=== PATIENT | female | born 1960 | race Caucasian/White ===

== ENCOUNTER 2017-08-13 13:15 | Emergency (ER) | payer OTHER ==
[2017-08-13 13:20] VITALS: BP 166/88
[2017-08-13] MEDS ORDERED: ACETAMINOPHEN 325 MG TABLET PO ONE (13:50)
[2017-08-13] MEDS ORDERED: LIDOCAINE 1% INJ-PF (10 MG/ML) 30 ML SDV INJ ONE (13:53)
[2017-08-13] MEDS ORDERED: LIDOCAINE 4%/TETRACAINE 0.5%/EPI 0.18% 5 ML TOPICAL SOLN TOP ONE (13:55)
[2017-08-13] MEDS ORDERED: HYDROCODONE/ACETAMINOPHEN 5-325 MG TABLET PO ONE (14:45)
[2017-08-13] MEDS ORDERED: CEPHALEXIN 500 MG CAPSULE PO ONE (14:45)
[2017-08-13] MEDS ORDERED: DIPH/PERTUSS(ACELL)/TETANUS VAC/PF 0.5 ML SYR (>=10YO) IM ONE (14:49)
--- NOTE | 2017-08-13 14:50 | ER Document Report ---
ED Hand/Wrist Injury - General Chief Complaint: Finger Injury Stated Complaint: FINGER INJURY Time Seen by Provider: 08/13/17 13:38 Mode of Arrival: Ambulatory Information source: Patient Notes: 56-year-old female presented to ED for open tuft fracture. She was sent from [place] since [place] to have her injury sutured and cleaned. Patient states she did not get a tetanus shot, antibiotics or pain medications at the [facility]. She states they they numbed the finger and then it was not numb and so they sent her up to come to the emergency room to have her finger sutured. Patient stated she impelled her finger with a sharp part of a machine she was working on , running it through the end of her finger. - HPI Injury to: Index finger Onset: This morning Where: Work Timing: Still present Quality of pain: Sharp, Throbbing Severity: Severe Pain Level: 5 Context: Laceration - Related Data Allergies/Adverse Reactions: No Known Allergies Allergy (Unverified 02/07/12 08:00) Past Medical History - General Information source: Patient - Social History Smoking Status: Current Every Day Smoker Cigarette use (# per day): Yes Chew tobacco use (# tins/day): No Smoking Education Provided: Yes Frequency of alcohol use: Occasional Drug Abuse: None Occupation: Machine Lives with: Family Family History: CAD, DM, Hyperlipidemia, Hypertension. denies: Arthritis, COPD , CVA, Malignancy, Thyroid Disfunction Patient has suicidal ideation: No Patient has homicidal ideation: No - Past Medical History Cardiac Medical History: Reports: None Pulmonary Medical History: Reports: None EENT Medical History: Reports: None Neurological Medical History: Reports: None Endocrine Medical History: Reports: None Renal/ Medical History: Reports: None Malignancy Medical History: Reports: None GI Medical History: Reports: None Musculoskeltal Medical History: Reports None Skin Medical History: Reports None Psychiatric Medical History: Reports: None Traumatic Medical History: Reports: None Infectious Medical History: Reports: None Surgical Hx: Negative Past Surgical History: Reports: None - Immunizations Immunizations up to date: Yes Hx Diphtheria, Pertussis, Tetanus Vaccination: Yes - 08/13/2017 Review of Systems - Review of Systems Constitutional: No symptoms reported EENT: No symptoms reported Cardiovascular: No symptoms reported Respiratory: No symptoms reported Gastrointestinal: No symptoms reported Genitourinary: No symptoms reported Female Genitourinary: No symptoms reported Musculoskeletal: Other - Left index finger tuft fracture Skin: Other - Open tuft fracture left index finger Hematologic/Lymphatic: No symptoms reported Neurological/Psychological: No symptoms reported -: Yes All other systems reviewed and negative Physical Exam - Vital signs Vitals: Temp Pulse BP Pulse Ox 97.7 F 77 166/88 H 98 08/13/17 13:19 08/13/17 13:19 08/13/17 13:19 08/13/17 13:19 Interpretation: Normal - General General appearance: Appears well, Alert - HEENT Head: Normocephalic, Atraumatic Eyes: Normal Pupils: PERRL - Respiratory Respiratory status: No respiratory distress Chest status: Nontender Breath sounds: Normal Chest palpation: Normal - Cardiovascular Rhythm: Regular Heart sounds: Normal auscultation Murmur: No - Abdominal Inspection: Normal Distension: No distension Bowel sounds: Normal Tenderness: Nontender Organomegaly: No organomegaly - Back Back: Normal, Nontender - Extremities General upper extremity: Normal temperature General lower extremity: Normal inspection, Nontender, Normal color, Normal ROM , Normal temperature, Normal weight bearing. No: Steven's sign Hand: Tender, Ecchymosis, Laceration, No evidence of human bite, No evidence of FB, Swelling. No: Abrasion, Deformity, Dislocation, Instability, Nail injury, Tendon deficit - Neurological Neuro grossly intact: Yes Cognition: Normal Orientation: AAOx4 Newberry Coma Scale Eye Opening: Spontaneous Newberry Coma Scale Verbal: Oriented Newberry Coma Scale Motor: Obeys Commands Kim Coma Scale Total: 15 Speech: Normal Motor strength normal: LUE, RUE, LLE, RLE Sensory: Normal - Psychological Associated symptoms: Normal affect, Normal mood - Skin Skin Temperature: Warm Skin Moisture: Dry Skin Color: Normal Course - Re-evaluation Re-evalutation: 08/13/17 15:00 56-year-old female presented to ED for open tuft fracture. She was sent from [place] since [place] to have her injury sutured and cleaned. Patient states that [facility] numbed her finger and then when the finger was not numb, they sent her to come to the emergency room to have her finger sutured. Patient states they did not give her any tenderness immunization, pain medicine, or antibiotics at the mid first. [facility] was called and they faxed over a x-ray report of the left index finger. It showed a tuft fracture and there is a opening. Patient stated she impelled her finger with a sharp part of a machine she was working on, running it through the end of her finger. She was treated with Tylenol and ice until we can get the faxed report from [employer]. L.E.T.was also applied to the finger to start the numbing process until I could suture the finger. After the report was received the finger was anesthetized with 1% lidocaine, cleaned well with surgical scrub, irrigated with 300 cc of normal saline, and sutured the laceration with 5-0 nylon sutures. After the finger was anesthetized patient tolerated the rest of the procedure well. Laceration was then dressed with bacitracin Telfa Kerlix and a protective finger splint. Patient was treated with Keflex and discharged home with a prescription for Keflex. Patient to follow-up with orthopedic for this open tuft fracture. - Vital Signs Vital signs: Temp Pulse Resp BP Pulse Ox 97.7 F 77 16 166/88 H 98 08/13/17 13:19 08/13/17 13:19 08/13/17 14:47 08/13/17 13:19 08/13/17 13:19 Procedures - Immobilization Left Finger 2nd digit Time completed: 15:00 Pre-Proc Neuro Vasc Exam: Normal Immobilizer type: Finger protection Performed by: PCT Post-Proc Neuro Vasc Exam: Normal Alignment checked and good: Yes - Laceration/Wound Repair Left Finger 2nd digit Time completed: 14:58 Wound length (cm): 1.5 Wound's Depth, Shape: Linear Laceration pre-procedure: Sterile PPE donned, Sterile drapes applied, Shur- Clens applied Anesthetic type: 1% Lidocaine Volume Anesthetic (mLs): 3 Wound explored: Contaminated Irrigated w/ Saline (mLs): 300 Wound Repaired With: Sutures Suture Size/Type: 5:0, Ethilon Number of Sutures: 3 Layer Closure?: No Post-procedure wound care: Sterile dressing applied, Splint applied Post-procedure NV exam normal: Yes Complications: No Discharge - Discharge Clinical Impression: tuft fracture left index finger open Condition: Stable Disposition: HOME, SELF-CARE Additional Instructions: Tuft Fracture of the Finger The tip of your finger is broken (beneath the finger nail). While painful , this type of fracture is not serious. You can expect the bone to heal within three to four weeks. Elevating and ice packing the finger will help greatly in reducing pain and swelling. You will probably need a protective splint, initially. When you can push firmly on the tip of your finger without any pain, you no longer need to use the splint. If the fingernail becomes black and painful, bleeding has occurred under the nail. This may need to be drained. Sometimes the nail must be removed. Occasionally, the tissue under the nail must be sewn back together. Call the doctor or return for examination if pain becomes severe, or if numbness or severe discoloration occurs. Hand Laceration A laceration on the hand can present special problems. It may be difficult to keep the wound dry. Motion of the fingers can disturb the healing edges. Your work may involve exposure to damaging chemicals or water. Keep the wound clean and dry. If you can't keep the cut dry, undisturbed, and free of chemical exposure, please discuss this with the doctor. If any water or chemical gets onto the dressing, remove it, blot the wound dry, then apply a fresh bandage. Dressings should be changed every day. If you feel the stitches pulling as you move the hand, a splint or other form of protection is needed. If any signs of infection occur (swelling, redness, increasing tenderness, red streaks, tender lumps in the armpit, or fever), see the doctor immediately. SOAP CLEANSING: Gently wash the wound daily using a mild soap (like Ivory, Phisoderm, Neutrogena). Use warm water, rubbing gently until all debris, ooze, and crusting have been washed from the wound. Allow to dry briefly (about 10 minutes) after cleaning. Repeat this cleansing at least three times a day for the first two days and then once or twice a day. ANTIBIOTIC OINTMENT PROTECTION: Your wounds are such that dressing them is not practical or optional. After cleansing, you should apply a thin coating of antibiotic ointment ( Bacitracin, not Neosporin) to the wounds at least three times daily. This lessens infection risk, and may decrease the amount of scarring. Use a q-tip or dull butter knife, not your finger, to apply this ointment. Any debris or ooze which builds up in the ointment should be gently rubbed off with a sterile gauze pad. Harder crusting may need to be gently scrubbed off with a clean wash cloth with soap and warm water, perhaps applying a warm, wet wash cloth to the wound for ten minutes first. Development of redness, severe itching, or blistering may mean allergy to the ointment. See the doctor. TETANUS IMMUNIZATION GIVEN: You have been given an immunization against tetanus. Please record this in your records. In general, a booster is needed only once every 10 years. The tetanus shot protects against tetanus or "lockjaw," which is a complication of certain wound infections (the tetanus shot cannot protect against the actual infection). The immunization site may become warm and red due to local reaction. If this occurs, apply warm compresses and take aspirin or ibuprofen to reduce inflammation and discomfort. Return for evaluation if the reaction becomes severe. PROPHYLACTIC ANTIBIOTIC: The antibiotics which have been prescribed are designed to decrease the risk of infection. Only certain types of wounds benefit from this -- the typical cut, scrape, or burn DOES NOT require antibiotics. Of course, infection can still occur despite the use of prophylactic antibiotics. Your wound will heal with less chance of an infectious complication if you take the medication as directed. The most important dose is the FIRST dose, so don't delay filling the prescription! ORAL NARCOTIC MEDICATION: You have been given a prescription for pain control. This medication is a narcotic. It's best taken with food, as nausea can result if taken on an empty stomach. Don't operate machinery or drive within six hours of taking this medication. Do not combine this medicine with alcohol, or with any medication which can cause sedation (such as cold tablets or sleeping pills) unless you get permission from the physician. Narcotics tend to cause constipation. If possible, drink plenty of fluids and eat a diet high in fiber and fruits. FOLLOW-UP CARE: Please follow-up with primary doctor or be seen in the emergency room in __ 2___ days for an infection check and dressing change. Please call orthopedics today or tomorrow to schedule a follow-up appointment for your open tuft fracture. Your sutures should be removed in ___8_ days. To facilitate a timely removal of your sutures, you may return to the Emergency Department at [facility]. You do not need to call for an appointment, but the best time to come in for suture removal is early in the morning. If you have been referred to another physician for follow-up care, call that physicians office for an appointment as you were instructed. If you experience a significant change in your laceration, or if you are concerned there may be an infection (swelling, redness, drainage, increasing tenderness, red streaks, tender lumps in the armpit or groin above the laceration, or fever) , return to the Emergency Department immediately re-evaluation. Prescriptions: Hydrocodone/Acetaminophen [Mcdonough 5-325 mg Tablet] 1 tab PO Q6HP PRN #7 tablet PRN Reason: Cephalexin Monohydrate [Keflex 500 mg Capsule] 500 mg PO Q6H 5 Days capsule Forms: Elevated Blood Pressure, Smoking Cessation Education, Return to Work Referrals: VERONICA CHAVEZ DO [ACTIVE STAFF] - Follow up as needed
== END 2017-08-13 14:58 | disposition home or self-care (01) ==
LOC: ER 13:15
PROC: 0HQGXZZ Repair Left Hand Skin, External Approach (ICD-10-PCS; principal; 2017-08-13)
DX: S62.631B Displaced fracture of distal phalanx of left index finger, initial encounter for open fracture (principal); W31.9XXA Contact with unspecified machinery, initial encounter; Y99.0 Civilian activity done for income or pay; Z23 Encounter for immunization; F17.210 Nicotine dependence, cigarettes, uncomplicated
CPT/HCPCS: 99283; 90471; 90715; 12001; J3490 ×2

== ENCOUNTER → 2018-01-27 | Outpatient (CLI) | payer SELFPAY ==
--- NOTE | 2018-01-27 16:59 | XCELERA REPORT ---
[address] [place] [facility] [address] Lower Extremity Venous Evaluation Procedure: Color flow and duplex imaging of the veins of the right lower extremity as well as the left Common Femoral vein. Right Sided Venous Evaluation Abnormal vessel filling, lucent, lack of, compression a, no Colour flow Fro Femoral to infrageniculate vessels the Greater Saphenous vein.. Left Sided Venous Evaluation The left common femoral vein is fully compressible. Spontaneous and phasic flow is present in the left common femoral vein. Interpretation Summary Extensive, acute DVT in the right lower extremity veins as detailed. Also superficial phlebitis. Name: TIA BENAVIDES Age: 57 yrs Gender: Female : 1960 Patient Status: Preadmit Patient Location: Study Date: 01/27/2018 04:02 PM Reason For Study: RLE PAIN Ordering Physician: ALEXIA LORENZ Performed By: Jenifer Galeana : ALEXIA LORENZ > Corby Tubbs
== END ==
LOC: SP 17:13
PROVIDERS: ATTEND Internal Medicine Hematology & Oncology
DX: M79.604 Pain in right leg (principal); M79.89 Other specified soft tissue disorders
CPT/HCPCS: 93971

== ENCOUNTER 2018-08-13 21:53 | Emergency (ER) | payer SELFPAY ==
--- NOTE | 2018-08-13 22:16 | ER Document Report ---
ED Medical Screen (RME) - General Stated Complaint: PSYCH Time Seen by Provider: 08/13/18 21:53 Primary Care Provider: ALEXIA LORENZ MD [Primary Care Provider] - Follow up as needed Mode of Arrival: Medic Information source: Patient, Emergency Med Personnel Notes: Patient is a 57-year-old female who presents the emergency department with complaints of depression and EtOH intoxication. Patient reports that she has a lot of stressors at home. States that she drank beer and liquor today. Denies any specific suicide plan. States that she "just needs to get help" and "just feel like giving up". Patient reports history of depression but states she has not taken any medications at this time. TRAVEL OUTSIDE OF THE [place] IN LAST 30 DAYS: No - Related Data Allergies/Adverse Reactions: No Known Allergies Allergy (Unverified 02/07/12 08:00) Past Medical History Renal/ Medical History: Denies: Hx Peritoneal Dialysis - Immunizations Immunizations up to date: Yes Hx Diphtheria, Pertussis, Tetanus Vaccination: Yes - 08/13/2017 Doctor's Discharge - Discharge Referrals: ALEXIA LORENZ MD [Primary Care Provider] - Follow up as needed
[2018-08-14 01:02] LABS: ABSOLUTE EOSINOPHILS # (AUTO) 0.1 10^3/uL (0.0-0.6); ABSOLUTE LYMPHOCYTES (AUTO) 1.6 10^3/uL (0.5-4.7); ABSOLUTE MONOCYTES (AUTO) 0.4 10^3/uL (0.1-1.4); ABSOLUTE NEUT (AUTO) 2.1 10^3/uL (1.7-8.2); EOSINOPHILS % (AUTO) 2.2 % (0-6); MEAN CORPUSCULAR HEMOGLOBIN 33.9 pg (27.0-33.4); MEAN CORPUSCULAR VOLUME 100 fl (80-97); MONOCYTES % (AUTO) 8.9 % (3-13); PLATELET COUNT 255 10^3/uL (150-450); RED BLOOD COUNT 5.61 10^6/uL (3.72-5.28); RED CELL DISTRIBUTION WIDTH 14.5 % (11.5-14.0); SEGMENTED NEUTROPHILS % (AUTO) 49.9 % (42-78); TOTAL CELLS COUNTED % (AUTO) 100 %; WHITE BLOOD COUNT 4.2 10^3/uL (4.0-10.5)
[2018-08-14 01:03] LABS: HEMATOCRIT 55.9 % (36.0-47.0)
[2018-08-14 01:21] LABS: ALANINE AMINOTRANSFERASE 41 U/L (9-52); ALBUMIN 4.8 g/dL (3.5-5.0); ALCOHOL 197 mg/dL (NONE DETECTED); ALKALINE PHOSPHATASE 137 U/L (38-126); ANION GAP 14 (5-19); ASPARTATE AMINO TRANSFERASE 44 U/L (14-36); BILIRUBIN,DIRECT 0.3 mg/dL (0.0-0.4); BILIRUBIN,TOTAL 0.5 mg/dL (0.2-1.3); BLOOD UREA NITROGEN 10 mg/dL (7-20); CALCIUM 10.1 mg/dL (8.4-10.2); CARBON DIOXIDE 24 mmol/L (22-30); CHLORIDE 108 mmol/L (98-107); GLUCOSE 88 mg/dL (75-110); POTASSIUM 4.7 mmol/L (3.6-5.0); SODIUM 145.7 mmol/L (137-145); TOTAL PROTEIN 8.4 g/dL (6.3-8.2)
[2018-08-14] MEDS ORDERED: DIAZEPAM 5 MG TABLET PO ONE (01:22)
[2018-08-14 01:24] LABS: ACETAMINOPHEN < 10 ug/mL (10-30); SALICYLATE < 1.0 mg/dL (2.0-20.0)
--- NOTE | 2018-08-14 01:27 | ER Document Report ---
Addendum entered and electronically signed by BACILIO STOKES DO 08/14/18 11:20: Discharge - Discharge Clinical Impression: Anxiety, Alcohol abuse Depression Qualifiers: Depression Type: unspecified Qualified Code(s): F32.9 - Major depressive disorder, single episode, unspecified Condition: Stable Disposition: HOME, SELF-CARE Additional Instructions: You have been evaluated both medical and behavioral health teams and been deemed appropriate for discharge. You have provided prescriptions for Effexor 37.5 mg daily and BuSpar 10 mg twice daily; please take as directed. You have been provided a local resource list of area providers including mobile crisis contact information and socioeconomic assistance. You are highly encouraged to follow-u p with outpatient substance abuse and mental health treatment. ACUTE ALCOHOL INTOXICATION and ALCOHOL ABUSE: Your evaluation revealed very high levels of alcohol. You can from dr inking a large amount of alcohol rapidly! Further, there's the risk of falls, traffic accidents, and fights. A high portion (about 50 percent) of the serious injuries seen in hospital emergency rooms are caused by alcohol. Alcohol overdosage is usually due to an underlying emotional or psychiatric problem. You may benefit from counselling. If "binge" drinking is an ongoing problem for you, or if you drink ANY AMOUNT of alcohol EVERY day, you most likely have a tendency to alcoholism. You should avoid alcohol totally. We can refer you for treatment. Persons with alcohol problems are often also prone to other addictions -- you should discuss any use of medications or drugs with the doctor. You should be watched at home for the next several hours by someone who has not been drinking. Get extra fluids for the next 24 hours. Call the doctor if there is repeated vomiting, increasing headache, decreasing level of alertness, or any other worsening. CHRONIC ALCOHOLISM and ALCOHOL ABUSE: Your evaluation reveals evidence of chronic alcoholism, an addiction to alcohol. The tendency to alcoholism may be inherited. Chronic use of alcohol weakens muscles, causes fatty deposits in the liver, damages the stomach, makes you more prone to infections, and can cause defects in unborn children. In the long run, brain atrophy and cirrhosis of the liver result. You are also at greater risk for certain types of cancer, such as cancer of the mouth, throat, stomach, and liver. Counselling services are available to help you. In-hospital treatment programs often help. Support groups such as Alcoholics Anonymous can be very useful in beating this addiction. Your physician can make a referral for you. As alcoholics often are prone to other addictions, you should discuss your use of any other medications with the doctor. ALCOHOL WITHDRAWAL: Your symptoms are caused by alcohol withdrawal. After a period of frequent drinking, the brain and body are changed by the alcohol. When you quit or reduce your drinking, the nervous system becomes unstable. Withdrawal symptoms can start a few hours after your last drink, but sometimes don't begin until a couple of days later. Symptoms can include shakiness, sweating, insomnia, nausea, vomiting, fearfulness, hallucinations, and seizures. In addition to the acute effects of alcohol withdrawal, we often have to deal with the medical effects of alcoholism. These problems often include dehydration, stomach irritation, intestinal bleeding, low blood sugar, liver disease, and pancreas inflammation. Treatment for alcohol withdrawal includes mild sedatives, vitamins, and fluids. You need to be with someone who can help if symptoms become severe. Many patients can withdraw at home. Admission to the hospital or a detox facility may be necessary if withdrawal symptoms are severe and uncontrollable. Abstaining from alcohol is the only effective long-term treatment. If you start drinking again, you will not be able to control yourself after the first drink. Treatment programs are available. In addition, many alcoholics benefit from Alcoholics Anonymous or other support groups available through your counselor or yazdanism documentation writer. KASSANDRA-SHIRLEY and MARCOS-DARRYL are support groups for friends and family members of an alcoholic. Go to the emergency room if you develop persistent vomiting, severe abdominal pain, fever, shortness of breath, hallucinations, uncontrollable tremors, or seizures. DEPRESSION: Your evaluation reveals that you have mental depression. While symptoms may be vague, they often include disturbance of sleep, fatigue, loss of appetite, and general loss of interest in life. While depression may be a side effect of drugs, or a reaction to a major change in your life, many cases have no known cause. If depression is acute, and related to a major loss in your life, you can expect it to clear completely with time. If you have been depressed a long time, are prone to repeated bouts of depression or low mood, or have been thinking of suicide, get help. Depression can be treated with anti-depressant medication and counselling. Long-term depression will often take a few weeks to clear, even with appropriate medication. Follow-up care is important. FOLLOW-UP CARE: If you have been referred to a physician for follow-up care, call the physicians office for an appointment as you were instructed or within the next two days.~ If you experience worsening or a significant change in your symptoms, notify the physician immediately or return to the Emergency Department at any time for re-evaluation. Prescriptions: Buspirone HCl [Buspar 10 mg Tablet] 10 mg PO BID 7 Days #14 tablet Venlafaxine HCl ER [Effexor Xr 37.5 mg Cap.sr] 37.5 mg PO DAILY 7 Days #7 cap.[id number].24h Referrals: [facility] [Outside] - Follow up in 3-5 days [facility] [Outside] - Follow up as needed ALEXIA LORENZ MD [Primary Care Provider] - Follow up as needed Addendum entered and electronically signed by GALINA BETTENCOURT LCSWA 08/14/18 11:15: Discharge - Discharge Clinical Impression: Anxiety, Alcohol abuse Depression Qualifiers: Depression Type: unspecified Qualified Code(s): F32.9 - Major depressive disorder, single episode, unspecified Condition: Stable Disposition: HOME, SELF-CARE Additional Instructions: You have been evaluated both medical and behavioral health teams and been deemed appropriate for discharge. You have provided prescriptions for Effexor 37.5 mg daily and BuSpar 10 mg twice daily; please take as directed. You have been provided a local resource list of area providers including mobile crisis contact information and socioeconomic assistance. You are highly encouraged to follow- up with outpatient substance abuse and mental health treatment. ACUTE ALCOHOL INTOXICATION and ALCOHOL ABUSE: Your evaluation revealed very high levels of alcohol. You can from drinking a large amount of alcohol rapidly! Further, there's the risk of falls, traffic accidents, and fights. A high portion (about 50 percent) of the serious injuries seen in hospital emergency rooms are caused by alcohol. Alcohol overdosage is usually due to an underlying emotional or psychiatric problem. You may benefit from counselling. If "binge" drinking is an ongoing problem for you, or if you drink ANY AMOUNT of alcohol EVERY day, you most likely have a tendency to alcoholism. You should avoid alcohol totally. We can refer you for treatment. Persons with alcohol problems are often also prone to other addictions -- you should discuss any use of medications or drugs with the doctor. You should be watched at home for the next several hours by someone who has not been drinking. Get extra fluids for the next 24 hours. Call the doctor if there is repeated vomiting, increasing headache, decreasing level of alertness, or any other worsening. CHRONIC ALCOHOLISM and ALCOHOL ABUSE: Your evaluation reveals evidence of chronic alcoholism, an addiction to alcohol. The tendency to alcoholism may be inherited. Chronic use of alcohol weakens muscles, causes fatty deposits in the liver, damages the stomach, makes you more prone to infections, and can cause defects in unborn children. In the long run, brain atrophy and cirrhosis of the liver result. You are also at greater risk for certain types of cancer, such as cancer of the mouth, throat, stomach, and liver. Counselling services are available to help you. In-hospital treatment programs often help. Support groups such as Alcoholics Anonymous can be very useful in beating this addiction. Your physician can make a referral for you. As alcoholics often are prone to other addictions, you should discuss your use of any other medications with the doctor. ALCOHOL WITHDRAWAL: Your symptoms are caused by alcohol withdrawal. After a period of frequent drinking, the brain and body are changed by the alcohol. When you quit or reduce your drinking, the nervous system becomes unstable. Withdrawal symptoms can start a few hours after your last drink, but sometimes don't begin until a couple of days later. Symptoms can include shakiness, sweating, insomnia, nausea, vomiting, fearfulness, hallucinations, and seizures. In addition to the acute effects of alcohol withdrawal, we often have to deal with the medical effects of alcoholism. These problems often include dehydration, stomach irritation, intestinal bleeding, low blood sugar, liver disease, and pancreas inflammation. Treatment for alcohol withdrawal includes mild sedatives, vitamins, and fluids. You need to be with someone who can help if symptoms become severe. Many patients can withdraw at home. Admission to the hospital or a detox facility may be necessary if withdrawal symptoms are severe and uncontrollable. Abstaining from alcohol is the only effective long-term treatment. If you start drinking again, you will not be able to control yourself after the first drink. Treatment programs are available. In addition, many alcoholics benefit from Alcoholics Anonymous or other support groups available through your [facility] or yazdanism documentation writer. AL-ANON and ALA-TEEN are support groups for friends and family members of an alcoholic. Go to the emergency room if you develop persistent vomiting, severe abdominal pain, fever, shortness of breath, hallucinations, uncontrollable tremors, or seizures. DEPRESSION: Your evaluation reveals that you have mental depression. While symptoms may be vague, they often include disturbance of sleep, fatigue, loss of appetite, and general loss of interest in life. While depression may be a side effect of drugs, or a reaction to a major change in your life, many cases have no known cause. If depression is acute, and related to a major loss in your life, you can expect it to clear completely with time. If you have been depressed a long time, are prone to repeated bouts of depression or low mood, or have been thinking of suicide, get help. Depression can be treated with anti-depressant medication and counselling. Long-term depression will often take a few weeks to clear, even with appropriate medication. Follow-up care is important. FOLLOW-UP CARE: If you have been referred to a physician for follow-up care, call the physicians office for an appointment as you were instructed or within the next two days.~ If you experience worsening or a significant change in your symptoms, notify the physician immediately or return to the Emergency Department at any time for re-evaluation. Referrals: ALEXIA LORENZ MD [Primary Care Provider] - Follow up as needed [facility] [Outside] - Follow up as needed [facility] [Outside] - Follow up in 3-5 days Original Note: ED General - General Chief Complaint: Depression Stated Complaint: PSYCH Time Seen by Provider: 08/13/18 21:53 Primary Care Provider: ALEXIA LORENZ MD [Primary Care Provider] - Follow up as needed Mode of Arrival: Medic Notes: Patient is a 57-year-old female past medical history of COPD, depression, presents complaining of "not being able to do this anymore". Patient reports significant social stressors at home including her son getting out on wright, patient paid $5000 to have him released from group home and he has since disappeared, is not responding to any phone calls or text messages. Patient also reports significant marital discord as well as discord with her neighbors. Patient states that she lost a good job recently, is now working at [employer] for minimum wage. The patient states that she is "tired of all of this" states that she feels hopeless. The patient denies any specific suicidal plan, means or intention to harm herself but simply states that she just wishes this could all and. She denies any acute medical concerns. She is not currently on any psychiatric medications although states that she once was in the [facility] emergency department and felt better after getting Ativan although they did not send her home with any additional medications. She does admit to resuming drinking and smoking within the past several weeks due to the stressors although states that she had been clean from both of these things for 5 months previous to that. She has not seen her general physician regarding today's concerns. TRAVEL OUTSIDE OF THE [place] IN LAST 30 DAYS: No - Related Data Allergies/Adverse Reactions: No Known Allergies Allergy (Unverified 02/07/12 08:00) Past Medical History - General Information source: Patient, Emergency Med Personnel - Social History Smoking Status: Current Every Day Smoker Frequency of alcohol use: Occasional Drug Abuse: None Lives with: Spouse/Significant other Family History: CAD, DM, Hyperlipidemia, Hypertension. denies: Arthritis, COPD, CVA, Malignancy, Thyroid Disfunction Patient has suicidal ideation: Yes - denies Patient has homicidal ideation: No Renal/ Medical History: Denies: Hx Peritoneal Dialysis - Immunizations Immunizations up to date: Yes Hx Diphtheria, Pertussis, Tetanus Vaccination: Yes - 08/13/2017 Review of Systems - Review of Systems Notes: Constitutional: Negative for fever. HENT: Negative for sore throat. Eyes: Negative for visual changes. Cardiovascular: Negative for chest pain. Respiratory: Negative for shortness of breath. Gastrointestinal: Negative for abdominal pain, vomiting or diarrhea. Genitourinary: Negative for dysuria. Musculoskeletal: Negative for back pain. Skin: Negative for rash. Neurological: Negative for headaches, weakness or numbness. 10 point ROS negative except as marked above and in HPI. Physical Exam - Vital signs Vitals: Temp Pulse Resp BP 97.9 F 94 17 123/75 08/13/18 22:47 08/13/18 22:47 08/13/18 22:47 08/13/18 22:47 Interpretation: Normal Notes: PHYSICAL EXAMINATION: GENERAL: Somewhat thin but in no acute distress HEAD: Atraumatic, normocephalic. EYES: Pupils equal round and reactive to light, extraocular movements intact, sclera anicteric, conjunctiva are normal. ENT: nares patent, oropharynx clear without exudates. Moist mucous membranes. NECK: Normal range of motion, supple without lymphadenopathy LUNGS: Breath sounds clear to auscultation bilaterally and equal. No wheezes rales or rhonchi. HEART: Regular rate and rhythm without murmurs ABDOMEN: Soft, nontender, normoactive bowel sounds. No guarding, no rebound. No masses appreciated. EXTREMITIES: Normal range of motion, no pitting or edema. No cyanosis. NEUROLOGICAL: No focal neurological deficits. Moves all extremities spontaneously and on command. PSYCH: Anxious, tearful SKIN: Warm, Dry, normal turgor, no rashes or lesions noted. Course - Re-evaluation Re-evalutation: 08/14/18 01:25 Patient presents with concerns of increasing anxiety, depression, feelings of hopelessness without overt suicidality. Does not meet immediate involuntary commitment criteria. She denies acute medical concerns. She has agreed to remain in the emergency department on a voluntary basis. Patient appears to be having somewhat of a panic attack at time of my evaluation, hyperventilating, tearful. Will give 5 mg of oral diazepam. Medical screening exam otherwise unremarkable. Medical screening labs are pending. She is otherwise cleared for evaluation in the morning. - Vital Signs Vital signs: Temp Pulse Resp BP Pulse Ox 97.9 F 94 17 123/75 08/13/18 22:47 08/13/18 22:47 08/13/18 22:47 08/13/18 22:47 - Laboratory Result Diagrams: 08/14/18 00:40 08/14/18 00:40 Laboratory results interpreted by me: 08/14/18 00:40 RBC 5.61 H Hgb 19.0 H Hct 55.9 H MCV 100 H MCH 33.9 H RDW 14.5 H Discharge - Discharge Clinical Impression: Anxiety Depression Qualifiers: Depression Type: unspecified Qualified Code(s): F32.9 - Major depressive disorder, single episode, unspecified Condition: Stable Referrals: ALEXIA LORENZ MD [Primary Care Provider] - Follow up as needed
[2018-08-14 02:44] LABS: APPEARANCE,URINE SLIGHTLY-CLOUDY; BILIRUBIN,URINE NEGATIVE (NEGATIVE); COLOR,URINE YELLOW; GLUCOSE, URINE NEGATIVE (NEGATIVE); KETONES,URINE NEGATIVE (NEGATIVE); LEUKOCYTE ESTERASE,URINE NEGATIVE (NEGATIVE); NITRITE,URINE NEGATIVE (NEGATIVE); PROTEIN,URINE 30 mg/dL (NEGATIVE); URINE SPECIFIC GRAVITY 1.017; UROBILINOGEN,URINE NEGATIVE mg/dL (<2.0)
[2018-08-14 03:02] LABS: URINE AMPHETAMINES SCREEN NEGATIVE; URINE BARBITURATES SCREEN NEGATIVE; URINE BENZODIAZEPINES SCREEN NEGATIVE; URINE COCAINE SCREEN NEGATIVE; URINE MARIJUANA (THC) SCREEN UNCONFIRMED POSITIVE; URINE METHADONE SCREEN NEGATIVE; URINE PHENCYCLIDINE SCREEN NEGATIVE
[2018-08-14 11:05] VITALS: BP 130/68
--- NOTE | 2018-08-14 12:33 | EKG REPORT ---
SEVERITY:- BORDERLINE ECG - SINUS RHYTHM BORDERLINE PROLONGED QT INTERVAL : Confirmed by: Tammy Garcia 14-Aug-2018 12:32:47
--- NOTE | 2018-08-14 16:54 | ER Document Report ---
Doctor's Note Notes: 08/14/18 16:53 As the rounding physician this AM, I assessed the patient's labs, vitals, and records. No concerning findings this morning. Patient denies any acute complaints. Patient is cleared for disposition by behavioral health team. PHYSICAL EXAMINATION: GENERAL: Well-appearing, well-nourished and in no acute distress. HEAD: Atraumatic, normocephalic. EYES: Pupils equal round extraocular movements intact, conjunctiva are normal. ENT: Nares patent NECK: Normal range of motion LUNGS: No respiratory distress Musculoskeletal: Normal range of motion NEUROLOGICAL: Normal speech, normal gait. PSYCH: Normal mood, normal affect. SKIN: Warm, Dry, normal turgor, no rashes or lesions noted. Home-going medication recommendations include Effexor and BuSpar.
== END 2018-08-14 11:48 | disposition home or self-care (01) ==
LOC: ER 21:53
DX: F41.9 Anxiety disorder, unspecified (principal); F32.9 Major depressive disorder, single episode, unspecified; F10.10 Alcohol abuse, uncomplicated; F17.200 Nicotine dependence, unspecified, uncomplicated; Z63.0 Problems in relationship with spouse or partner; Z62.820 Parent-biological child conflict
CPT/HCPCS: 36415; 80053; 80307; 81001; 85025; 93005; 93010; 99284

== ENCOUNTER 2018-10-16 00:29 | Emergency (ER) | payer SELFPAY | END 2018-10-16 01:30 | disposition left against medical advice (07) | LOC: ER 00:29 | DX: Z53.21 Procedure and treatment not carried out due to patient leaving prior to being seen by health care provider (principal) ==

== ENCOUNTER 2018-12-18 01:19 | Emergency (ER) | payer SELFPAY ==
[2018-12-18 01:29] VITALS: BP 108/63
== END 2018-12-18 03:55 | disposition left against medical advice (07) ==
LOC: ER 01:19
DX: Z53.21 Procedure and treatment not carried out due to patient leaving prior to being seen by health care provider (principal)

== ENCOUNTER 2019-02-14 01:19 | Emergency (ER) | payer SELFPAY ==
[2019-02-14 03:08] LABS: APPEARANCE,URINE CLEAR; BILIRUBIN,URINE NEGATIVE (NEGATIVE); COLOR,URINE STRAW; GLUCOSE, URINE NEGATIVE (NEGATIVE); KETONES,URINE NEGATIVE (NEGATIVE); LEUKOCYTE ESTERASE,URINE NEGATIVE (NEGATIVE); NITRITE,URINE NEGATIVE (NEGATIVE); PROTEIN,URINE NEGATIVE (NEGATIVE); URINE SPECIFIC GRAVITY 1.002; UROBILINOGEN,URINE NEGATIVE mg/dL (<2.0)
[2019-02-14 03:08] LABS: ABSOLUTE EOSINOPHILS # (AUTO) 0.1 10^3/uL (0.0-0.6); ABSOLUTE LYMPHOCYTES (AUTO) 1.3 10^3/uL (0.5-4.7); ABSOLUTE MONOCYTES (AUTO) 0.4 10^3/uL (0.1-1.4); ABSOLUTE NEUT (AUTO) 2.5 10^3/uL (1.7-8.2); BASOPHILS % (AUTO) 0.9 % (0-2); EOSINOPHILS % (AUTO) 3.4 % (0-6); HEMATOCRIT 49.6 % (36.0-47.0); HEMOGLOBIN 16.8 g/dL (12.0-15.5); MEAN CORPUSCULAR HEMOGLOBIN 33.8 pg (27.0-33.4); MEAN CORPUSCULAR HGB CONC 33.8 g/dL (32.0-36.0); MEAN CORPUSCULAR VOLUME 100 fl (80-97); MONOCYTES % (AUTO) 9.2 % (3-13); PLATELET COUNT 274 10^3/uL (150-450); RED BLOOD COUNT 4.97 10^6/uL (3.72-5.28); SEGMENTED NEUTROPHILS % (AUTO) 57.5 % (42-78); TOTAL CELLS COUNTED % (AUTO) 100 %; WHITE BLOOD COUNT 4.4 10^3/uL (4.0-10.5)
[2019-02-14 03:23] LABS: URINE AMPHETAMINES SCREEN NEGATIVE; URINE BARBITURATES SCREEN NEGATIVE; URINE BENZODIAZEPINES SCREEN NEGATIVE; URINE COCAINE SCREEN NEGATIVE; URINE MARIJUANA (THC) SCREEN NEGATIVE; URINE METHADONE SCREEN NEGATIVE; URINE PHENCYCLIDINE SCREEN NEGATIVE
[2019-02-14 03:24] LABS: ACETAMINOPHEN < 10 ug/mL (10-30); ALBUMIN 3.9 g/dL (3.5-5.0); ALCOHOL 231 mg/dL (NONE DETECTED); ALKALINE PHOSPHATASE 105 U/L (38-126); ANION GAP 11 (5-19); ASPARTATE AMINO TRANSFERASE 66 U/L (14-36); BILIRUBIN,DIRECT 0.1 mg/dL (0.0-0.4); BILIRUBIN,TOTAL 0.3 mg/dL (0.2-1.3); BLOOD UREA NITROGEN 8 mg/dL (7-20); CALCIUM 9.2 mg/dL (8.4-10.2); CARBON DIOXIDE 24 mmol/L (22-30); CHLORIDE 109 mmol/L (98-107); GLUCOSE 93 mg/dL (75-110); SALICYLATE < 1.0 mg/dL (2.0-20.0); TOTAL PROTEIN 6.6 g/dL (6.3-8.2)
[2019-02-14] MEDS ORDERED: NORMAL SALINE 1000 ML 1,000 ML IV ONE (03:35)
[2019-02-14] MEDS ORDERED: DIPHENHYDRAMINE HCL 50 MG CAPSULE PO ONE (04:15)
[2019-02-14] MEDS ORDERED: NICOTINE 21 MG/24 HR PATCH.TD24 TD ONE (04:29)
--- NOTE | 2019-02-14 04:49 | ER Document Report ---
ED Psych Disorder / Suicide - General TRAVEL OUTSIDE OF THE [place] IN LAST 30 DAYS: No <OCTAVIA COBIAN - Last Filed: 02/14/19 07:28> <GALINA BETTENCOURT - Last Filed: 02/14/19 11:05> <DEANGELODEDRA - Last Filed: 02/14/19 11:24> - General Chief Complaint: Suicidal Ideation Stated Complaint: SI/ETOH Time Seen by Provider: 02/14/19 02:49 Primary Care Provider: ALEXIA LORENZ MD [Primary Care Provider] - Follow up as needed Notes: Patient is a 58-year-old female presents to the emergency department for suicidal ideations. Patient openly admits to drinking alcohol this evening. She is conscious alert and oriented x4. States she has been fighting with her ex-. Patient voices, "I just want it all to end." Patient also voices that if she had a gun she would kill herself. Patient states she would like medication to help her sleep and she would also like a cigarette. Patient denies any homicidal ideations, she denies any visual or auditory hallucinations. (OCTAVIA COBIAN) - Related Data Allergies/Adverse Reactions: No Known Allergies Allergy (Unverified 02/07/12 08:00) Past Medical History - General Information source: Patient - Social History Smoking Status: Current Every Day Smoker Chew tobacco use (# tins/day): No Frequency of alcohol use: Heavy Family History: CAD, DM, Hyperlipidemia, Hypertension. denies: Arthritis, COPD, CVA, Malignancy, Thyroid Disfunction Patient has suicidal ideation: Yes Patient has homicidal ideation: Yes Renal/ Medical History: Denies: Hx Peritoneal Dialysis Psychiatric Medical History: Reports: Hx Depression - Immunizations Immunizations up to date: Yes Hx Diphtheria, Pertussis, Tetanus Vaccination: Yes - 08/13/2017 <OCTAVIA COBIAN - Last Filed: 02/14/19 07:28> Review of Systems - Review of Systems Constitutional: No symptoms reported EENT: No symptoms reported Cardiovascular: No symptoms reported Respiratory: No symptoms reported Gastrointestinal: No symptoms reported Genitourinary: No symptoms reported Female Genitourinary: No symptoms reported Musculoskeletal: No symptoms reported Skin: No symptoms reported Hematologic/Lymphatic: No symptoms reported Neurological/Psychological: See HPI <MANSOOR COBIANSHELLIEURI - Last Filed: 02/14/19 07:28> Physical Exam <MANSOOR COBIANSHELLIEURI - Last Filed: 02/14/19 07:28> - Vital signs Vitals: Temp Pulse Resp BP Pulse Ox 97.6 F 96 22 H 124/72 99 02/14/19 01:23 02/14/19 01:23 02/14/19 01:23 02/14/19 01:02/14/19 01:23 - Notes Notes: GENERAL: Alert, interacts well. No acute distress. Hoarse voice noted on exam, patient states this is her normal. HEAD: Normocephalic, atraumatic. EYES: Pupils equal, round, and reactive to light. Extraocular movements intact. ENT: Oral mucosa moist, tongue midline. NECK: Full range of motion. Supple. Trachea midline. LUNGS: Clear to auscultation bilaterally, no wheezes, rales, or rhonchi. No respiratory distress. HEART: Regular rate and rhythm. No murmur ABDOMEN: Soft, non-tender. Non-distended. Bowel sounds present in all 4 quadrants. EXTREMITIES: Moves all 4 extremities spontaneously. No edema, normal radial and dorsalis pedis pulses bilaterally. No cyanosis. BACK: no cervical, thoracic, lumbar midline tenderness. No saddle anesthesia, normal distal neurovascular exam. NEUROLOGICAL: Alert and oriented x3. Normal speech. cranial nerves II through XII grossly intact PSYCH: Normal affect, anxious. SKIN: Warm, dry, normal turgor. No rashes or lesions noted. (KEILYMANSOOR MARCELOMARYANA) Course - Laboratory Result Diagrams: 02/14/19 02:50 02/14/19 02:50 <KEILYDAVIANSHERRIEMASON - Last Filed: 02/14/19 07:28> - Laboratory Result Diagrams: 02/14/19 02:50 02/14/19 02:50 <GALINA BETTENCOURT - Last Filed: 02/14/19 11:05> - Laboratory Result Diagrams: 02/14/19 02:50 02/14/19 02:50 <DEDRA BRIGHT - Last Filed: 02/14/19 11:24> - Re-evaluation Re-evalutation: IVC petition has been filled out. Patient's initial blood alcohol was 231. Patient is conscious alert and oriented x4. Around 07:320 the patient will be clinically sober. She was given Benadryl in hopes to help her sleep. Upon reassessment patient is sleeping soundly, appears to be in no distress. 02/14/19 07:28 Patient continues to be sleeping, easily arousable to verbal stimuli. Voices no complaints. Patient is medically cleared for psych evaluation. (OCTAVIA COBIAN) - Vital Signs Vital signs: Temp Pulse Resp BP Pulse Ox 98.4 F 84 16 154/72 H 99 02/14/19 06:06 02/14/19 06:06 02/14/19 06:06 02/14/19 06:06 02/14/19 01:23 - Laboratory Laboratory results interpreted by me: 02/14/19 02/14/19 02:50 02:50 Hgb 16.8 H Hct 49.6 H MCV 100 H MCH 33.8 H Chloride 109 H AST 66 H Salicylates < 1.0 L Acetaminophen < 10 L Discharge <OCTAVIA COBIAN - Last Filed: 02/14/19 07:28> <GALINA BETTENCOURT - Last Filed: 02/14/19 11:05> <DEDRA BRIGHT - Last Filed: 02/14/19 11:24> - Discharge Clinical Impression: Suicidal ideations Alcohol intoxication Qualifiers: Complication of substance-induced condition: uncomplicated Qualified Code(s): F10.920 - Alcohol use, unspecified with intoxication, uncomplicated Condition: Stable Disposition: HOME, SELF-CARE Additional Instructions: You have been evaluated both medical and behavioral health teams and been deemed appropriate for discharge. The behavioral health team has secured a bed at the [facility]. You are highly encouraged to follow through this voluntary placement. You have also received a local resource list of area providers including mobile crisis contact information. ACUTE ALCOHOL INTOXICATION and ALCOHOL ABUSE: Your evaluation revealed very high levels of alcohol. You can from drinking a large amount of alcohol rapidly! Further, there's the risk of falls, traffic accidents, and fights. A high portion (about 50 percent) of the serious injuries seen in hospital emergency rooms are caused by alcohol. Alcohol overdosage is usually due to an underlying emotional or psychiatric problem. You may benefit from counselling. If "binge" drinking is an ongoing problem for you, or if you drink ANY AMOUNT of alcohol EVERY day, you most likely have a tendency to alcoholism. You should avoid alcohol totally. We can refer you for treatment. Persons with alcohol problems are often also prone to other addictions -- you should discuss any use of medications or drugs with the doctor. You should be watched at home for the next several hours by someone who has not been drinking. Get extra fluids for the next 24 hours. Call the doctor if there is repeated vomiting, increasing headache, decreasing level of alertness, or any other worsening. CHRONIC ALCOHOLISM and ALCOHOL ABUSE: Your evaluation reveals evidence of chronic alcoholism, an addiction to alcohol. The tendency to alcoholism may be inherited. Chronic use of alcohol weakens muscles, causes fatty deposits in the liver, damages the stomach, makes you more prone to infections, and can cause defects in unborn children. In the long run, brain atrophy and cirrhosis of the liver result. You are also at greater risk for certain types of cancer, such as cancer of the mouth, throat, stomach, and liver. Counselling services are available to help you. In-hospital treatment programs often help. Support groups such as Alcoholics Anonymous can be very useful in beating this addiction. Your physician can make a referral for you. As alcoholics often are prone to other addictions, you should discuss your use of any other medications with the doctor. ALCOHOL WITHDRAWAL: Your symptoms are caused by alcohol withdrawal. After a period of frequent drinking, the brain and body are changed by the alcohol. When you quit or reduce your drinking, the nervous system becomes unstable. Withdrawal symptoms can start a few hours after your last drink, but sometimes don't begin until a coupl e of days later. Symptoms can include shakiness, sweating, insomnia, nausea, vomiting, fearfulness, hallucinations, and seizures. In addition to the acute effects of alcohol withdrawal, we often have to deal with the medical effects of alcoholism. These problems often include dehydration, stomach irritation, intestinal bleeding, low blood sugar, liver disease, and pancreas inflammation. Treatment for alcohol withdrawal includes mild sedatives, vitamins, and fluids. You need to be with someone who can help if symptoms become severe. Many patients can withdraw at home. Admission to the hospital or a detox facility may be necessary if withdrawal symptoms are severe and uncontrollable. Abstaining from alcohol is the only effective long-term treatment. If you start drinking again, you will not be able to control yourself after the first drink. Treatment programs are available. In addition, many alcoholics benefit from Alcoholics Anonymous or other support groups available through your counselor or methodist sales representative supervisor. AL-ANOiLsandro and MARCOS-TEEN are support groups for friends and family members of an alcoholic. Go to the emergency room if you develop persistent vomiting, severe abdominal pain, fever, shortness of breath, hallucinations, uncontrollable tremors, or seizures. DEPRESSION: Your evaluation reveals that you have mental depression. While symptoms may be vague, they often include disturbance of sleep, fatigue, loss of appetite, and general loss of interest in life. While depression may be a side effect of drugs, or a reaction to a major change in your life, many cases have no known cause. If depression is acute, and related to a major loss in your life, you can expect it to clear completely with time. If you have been depressed a long time, are prone to repeated bouts of depression or low mood, or have been thinking of suicide, get help. Depression can be treated with anti-depressant medication and counselling. Long-term depression will often take a few weeks to clear, even with appropriate medication. Follow-up care is important. SUICIDAL IDEATION: Suicidal ideation is a common medical term for thoughts about suicide, whic h may be as detailed as a formulated plan, without the suicidal act itself. Although most people who undergo suicidal ideation do not commit suicide, some go on to make suicide attempts. The range of suicidal ideation varies greatly from fleeting to detailed planning, role playing, and unsuccessful attempts. While thoughts about suicide are common, most people do not carry out serious actions to commit suicide. Based upon your evaluation and discussion with you, we do not believe you are currently at risk to act upon your thoughts of suicide. You have agreed to return to the Emergency Department, at any time, if you feel inclined to act upon your suicidal thoughts. FOLLOW-UP CARE: If you have been referred to a physician for follow-up care, call the physicians office for an appointment as you were instructed or within the next two days. If you experience worsening or a significant change in your symptoms, notify the physician immediately or return to the Emergency Department at any time for re-evaluation. Referrals: ALEXIA LORENZ MD [Primary Care Provider] - Follow up as needed
--- NOTE | 2019-02-14 06:33 | EKG REPORT ---
SEVERITY:- OTHERWISE NORMAL ECG - SINUS RHYTHM BORDERLINE RIGHT AXIS DEVIATION : Confirmed by: Ritchie Stuart MD 14-Feb-2019 06:32:35
--- NOTE | 2019-02-14 09:37 | ER Document Report ---
Doctor's Note Notes: 02/14/19 09:36 I have evaluated this pt. this am and she has no c/o at this time. She feels all of her needs are being met and her PE is normal. She is awaiting disposition per mental health.
[2019-02-14 11:56] VITALS: BP 141/81
== END 2019-02-14 12:03 | disposition home or self-care (01) ==
LOC: ER 01:19
DX: R45.851 Suicidal ideations (principal); F10.920 Alcohol use, unspecified with intoxication, uncomplicated; F17.210 Nicotine dependence, cigarettes, uncomplicated
CPT/HCPCS: 93005; 99285; 96360; 36415; 80307 ×4; 85025; 80053; 81001; 93010; J7030

== ENCOUNTER 2019-02-18 23:11 | Emergency (ER) | payer SELFPAY ==
[2019-02-19 00:08] LABS: ABSOLUTE EOSINOPHILS # (AUTO) 0.1 10^3/uL (0.0-0.6); ABSOLUTE LYMPHOCYTES (AUTO) 1.3 10^3/uL (0.5-4.7); ABSOLUTE MONOCYTES (AUTO) 0.6 10^3/uL (0.1-1.4); ABSOLUTE NEUT (AUTO) 4.6 10^3/uL (1.7-8.2); BASOPHILS % (AUTO) 0.7 % (0-2); EOSINOPHILS % (AUTO) 1.5 % (0-6); HEMATOCRIT 48.7 % (36.0-47.0); HEMOGLOBIN 16.7 g/dL (12.0-15.5); LYMPHOCYTES % (AUTO) 20.1 % (13-45); MEAN CORPUSCULAR HEMOGLOBIN 34.4 pg (27.0-33.4); MEAN CORPUSCULAR HGB CONC 34.2 g/dL (32.0-36.0); MEAN CORPUSCULAR VOLUME 100 fl (80-97); MONOCYTES % (AUTO) 8.6 % (3-13); PLATELET COUNT 204 10^3/uL (150-450); RED BLOOD COUNT 4.85 10^6/uL (3.72-5.28); RED CELL DISTRIBUTION WIDTH 14.4 % (11.5-14.0); SEGMENTED NEUTROPHILS % (AUTO) 69.1 % (42-78); TOTAL CELLS COUNTED % (AUTO) 100 %; WHITE BLOOD COUNT 6.7 10^3/uL (4.0-10.5)
--- NOTE | 2019-02-19 00:11 | ER Document Report ---
ED Medical Screen (RME) - General Chief Complaint: Psych Problem Stated Complaint: SUICIDAL IDEATONS,VOLUNTARY IVC Time Seen by Provider: 02/19/19 00:01 Primary Care Provider: ALEXIA LORENZ MD [Primary Care Provider] - Follow up as needed Notes: Patient is a 58-year-old female presents to the emergency department for suicidal and homicidal ideations towards her ex-. Patient was just seen at this facility recently for same. Was also intoxicated at that time. Patient was discharged from this facility and sent to [facility]. Patient voices she has had over 7 beers this evening. States she would "like to end it all." Patient voices she was placed on hydroxyzine when she was discharged from this facility. States she took "more than I should have tonight." then admits to takinf 6 25 mg tabs Spoke with Crystal (case [id number]) at [facility] to watch for ACCESS CLINICIAN depression, EKG changes, need on agriculture engineer for 6 hours, hydrate for hypotension/tachycardia. Get 4 hours tylenol/asa level. After 6 hours if at baseline, clear for psych eval. If not at baseline (lethargic) monitor until at baseline. GENERAL: Alert, interacts well. Crying NEUROLOGICAL: Alert and oriented x3. Normal speech. PSYCH: Flat affect, depressed mood. I have greeted and performed a rapid initial assessment of this patient. A comprehensive ED assessment and evaluation of the patient, analysis of test results and completion of the medical decision making process will be conducted by additional ED providers. I have specifically instructed the patient or family members with the patient to immediately return to any nursing staff should anything change in the patient's condition or with their chief complaint. This medical record was dictated with voice recognizing software. There may be grammatical, syntax errors that are unintended. TRAVEL OUTSIDE OF THE [place] IN LAST 30 DAYS: No - Related Data Allergies/Adverse Reactions: No Known Allergies Allergy (Unverified 02/07/12 08:00) Past Medical History Renal/ Medical History: Denies: Hx Peritoneal Dialysis Psychiatric Medical History: Reports: Hx Depression - Immunizations Immunizations up to date: Yes Hx Diphtheria, Pertussis, Tetanus Vaccination: Yes - 08/13/2017 Physical Exam - Vital signs Vitals: Temp Pulse Resp BP Pulse Ox 98.0 F 75 16 107/70 97 02/18/19 23:37 02/18/19 23:37 02/18/19 23:37 02/18/19 23:37 02/18/19 23:37 Course - Vital Signs Vital signs: Temp Pulse Resp BP Pulse Ox 98.0 F 75 16 107/70 97 02/18/19 23:37 02/18/19 23:37 02/18/19 23:37 02/18/19 23:37 02/18/19 23:37 - Laboratory Result Diagrams: 02/18/19 23:35 02/18/19 23:35 Laboratory results interpreted by me: 02/18/19 23:35 Hgb 16.7 H Hct 48.7 H MCV 100 H MCH 34.4 H RDW 14.4 H Doctor's Discharge - Discharge Referrals: ALEXIA LORENZ MD [Primary Care Provider] - Follow up as needed
[2019-02-19 00:19] LABS: ALBUMIN 4.3 g/dL (3.5-5.0); ALCOHOL 73 mg/dL (NONE DETECTED); ALKALINE PHOSPHATASE 84 U/L (38-126); ANION GAP 11 (5-19); ASPARTATE AMINO TRANSFERASE 67 U/L (14-36); BILIRUBIN,DIRECT 0.2 mg/dL (0.0-0.4); BILIRUBIN,TOTAL 0.4 mg/dL (0.2-1.3); BLOOD UREA NITROGEN 10 mg/dL (7-20); CALCIUM 9.9 mg/dL (8.4-10.2); CARBON DIOXIDE 26 mmol/L (22-30); CHLORIDE 105 mmol/L (98-107); GLUCOSE 81 mg/dL (75-110); POTASSIUM 4.1 mmol/L (3.6-5.0); TOTAL PROTEIN 7.1 g/dL (6.3-8.2)
[2019-02-19 00:22] LABS: ACETAMINOPHEN < 10 ug/mL (10-30); SALICYLATE < 1.0 mg/dL (2.0-20.0)
[2019-02-19 00:27] LABS: APPEARANCE,URINE CLEAR; BILIRUBIN,URINE NEGATIVE (NEGATIVE); COLOR,URINE STRAW; GLUCOSE, URINE NEGATIVE (NEGATIVE); KETONES,URINE NEGATIVE (NEGATIVE); LEUKOCYTE ESTERASE,URINE NEGATIVE (NEGATIVE); NITRITE,URINE NEGATIVE (NEGATIVE); PROTEIN,URINE NEGATIVE (NEGATIVE); URINE SPECIFIC GRAVITY 1.004; UROBILINOGEN,URINE NEGATIVE mg/dL (<2.0)
[2019-02-19 00:41] LABS: URINE AMPHETAMINES SCREEN NEGATIVE; URINE BARBITURATES SCREEN NEGATIVE; URINE BENZODIAZEPINES SCREEN NEGATIVE; URINE COCAINE SCREEN NEGATIVE; URINE MARIJUANA (THC) SCREEN NEGATIVE; URINE METHADONE SCREEN NEGATIVE; URINE PHENCYCLIDINE SCREEN NEGATIVE
--- NOTE | 2019-02-19 01:40 | ER Document Report ---
ED Psych Disorder / Suicide - General Chief Complaint: Suicidal Ideation Stated Complaint: SUICIDAL IDEATONS,VOLUNTARY IVC Time Seen by Provider: 02/19/19 00:01 Primary Care Provider: ALEXIA LORENZ MD [ACTIVE STAFF] - Follow up as needed TRAVEL OUTSIDE OF THE [place] IN LAST 30 DAYS: No - HPI Notes: This is a 58-year-old female who presents today with a complaint of suicidal id eation. Patient has a history of alcohol abuse and states she is been drinking heavily today. Patient states she is having some marital issues and has had some homicidal thoughts towards her ex-. She denies any physical complaints at this time. Patient apparently took an overdose of her medication. She states she took only 3 more pills. She admits to suicidal thoughts at the time. She denies any cardiopulmonary symptoms. Describes her symptoms as moderate. - Related Data Allergies/Adverse Reactions: No Known Allergies Allergy (Unverified 02/07/12 08:00) Past Medical History - Social History Smoking Status: Current Every Day Smoker Frequency of alcohol use: Heavy Drug Abuse: Prescription drugs Family History: CAD, DM, Hyperlipidemia, Hypertension. denies: Arthritis, COPD, CVA, Malignancy, Thyroid Disfunction Patient has suicidal ideation: Yes Patient has homicidal ideation: Yes Renal/ Medical History: Denies: Hx Peritoneal Dialysis Psychiatric Medical History: Reports: Hx Depression - Immunizations Immunizations up to date: Yes Hx Diphtheria, Pertussis, Tetanus Vaccination: Yes - 08/13/2017 Review of Systems - Review of Systems Gastrointestinal: denies: Abdominal pain, Diarrhea, Nausea Neurological/Psychological: Depression, Anxiety, Homicidal ideation, Suicidal ideation. denies: Confusion, Dementia -: Yes All other systems reviewed and negative Physical Exam - Vital signs Vitals: Temp Pulse Resp BP Pulse Ox 98.0 F 75 16 107/70 97 02/18/19 23:37 02/18/19 23:37 02/18/19 23:37 02/18/19 23:37 02/18/19 23:37 - General General appearance: Appears well, Alert - HEENT Head: Normocephalic, Atraumatic Eyes: Normal Pupils: PERRL - Respiratory Respiratory status: No respiratory distress Chest status: Nontender Breath sounds: Normal Chest palpation: Normal - Cardiovascular Rhythm: Regular Heart sounds: Normal auscultation Murmur: No - Abdominal Inspection: Normal Distension: No distension Bowel sounds: Normal Tenderness: Nontender Organomegaly: No organomegaly - Neurological Neuro grossly intact: Yes Cognition: Normal Orientation: AAOx4 [place] Coma Scale Eye Opening: Spontaneous [place] Coma Scale Verbal: Oriented [place] Coma Scale Motor: Obeys Commands [place] Coma Scale Total: 15 Speech: Normal Motor strength normal: LUE, RUE, LLE, RLE Sensory: Normal - Psychological Associated symptoms: Normal affect, Normal mood - Skin Skin Temperature: Warm Skin Moisture: Dry Skin Color: Normal Course - Re-evaluation Re-evalutation: 02/19/19 01:40 We will get behavioral health assessment done for suicidal and homicidal ideation. 02/19/19 03:21 Patient is medically cleared for behavioral health assessment. - Vital Signs Vital signs: Temp Pulse Resp BP Pulse Ox 98.0 F 75 16 107/70 97 02/18/19 23:37 02/18/19 23:37 02/18/19 23:37 02/18/19 23:37 02/18/19 23:37 - Laboratory Result Diagrams: 02/18/19 23:35 02/18/19 23:35 Laboratory results interpreted by me: 02/18/19 02/18/19 23:35 23:35 Hgb 16.7 H Hct 48.7 H MCV 100 H MCH 34.4 H RDW 14.4 H AST 67 H Salicylates < 1.0 L Acetaminophen < 10 L Discharge - Discharge Clinical Impression: Suicidal ideations Condition: Stable Disposition: OTHER Referrals: ALEXIA LORENZ MD [ACTIVE STAFF] - Follow up as needed
--- NOTE | 2019-02-19 09:08 | EKG REPORT ---
SEVERITY:- ABNORMAL ECG - SINUS RHYTHM PROBABLE LEFT ATRIAL ABNORMALITY BORDERLINE PROLONGED QT INTERVAL : Confirmed by: Tammy Garcia 19-Feb-2019 09:08:00
--- NOTE | 2019-02-19 09:08 | EKG REPORT ---
SEVERITY:- NORMAL ECG - SINUS RHYTHM : Confirmed by: Tammy Garcia 19-Feb-2019 09:07:44
--- NOTE | 2019-02-19 09:51 | ER Document Report ---
Doctor's Note Notes: 02/19/19 09:50 I have evaluated this pt. this am and she has no c/o at this time. She feels all of her needs are being met and her physical exam is normal. She wants to go home. She is awaiting disposition per mental health.
--- NOTE | 2019-02-19 10:51 | PSYCHOLOGICAL NOTE ---
Psych Note - Psych Note Date seen by psych provider: 02/19/19 Time seen by psych provider: 08:15 Psych Note: Reason for Consult: Homicidal ideation/ ETOH This is a 58-year-old female who presents today with a complaint of suicidal ideation. Patient has a history of alcohol abuse and states she is been drinking heavily today. Patient states she is having some marital issues and has had some homicidal thoughts towards her ex-; Clinician notes this is chronic for the patient when under the influence. Patient is now no longer under the influence and denies any thoughts of wanting to harm herself or others. She discloses that she was in [facility] for detox until last Thursday night but has relapsed. She disclosed that her son is currently looking into getting her a place that is a 6-month program located in [place]. Patient is alert and orientated to person, place, time and circumstance. Mood is slightly anxious with tearful affect. Patient denies suicidal and homicidal ideation. Delusions are absent behaviors congruent with an intact reality based presentation i.e. organized and linear thought process. Eye contact was well- maintained. Conversational speech is within normal rate, tone and prosody. Intellectual abilities appear to be within the average range. Attention and concentration are currently good. Insight, judgment, impulse control are fair. 303.90 (F10.20) alcohol use disorder; moderate No medication recommendations at this time Impression\plan: Patient is cleared from acute psychiatric services. Patient requesting substance use assistance. Patient denies thoughts of wanting to harm herself or others. Patient states her son is working on getting her into a 6 month substance abuse program in [place]. Patient was just released from [facility] after detoxing 6 days ago. Patient received resource list of area providers for both mental health and substance abuse treatment in addition to mobile crisis contact information and detox facilities. Dr. Hernandez was consulted and the care management of this patient; attending physicians in agreement with recommendations and disposition.
[2019-02-19 11:37] VITALS: BP 121/66
== END 2019-02-19 11:35 | disposition home or self-care (01) ==
LOC: ER 23:11
DX: R45.851 Suicidal ideations (principal); R45.850 Homicidal ideations; F10.10 Alcohol abuse, uncomplicated; F32.9 Major depressive disorder, single episode, unspecified; F17.200 Nicotine dependence, unspecified, uncomplicated
CPT/HCPCS: 36415; 80053; 80307; 81001; 85025; 93005; 93010; 99285

== ENCOUNTER 2019-02-25 23:20 | Emergency (ER) | payer SELFPAY ==
[2019-02-26 00:39] LABS: ABSOLUTE EOSINOPHILS # (AUTO) 0.2 10^3/uL (0.0-0.6); ABSOLUTE MONOCYTES (AUTO) 0.5 10^3/uL (0.1-1.4); ABSOLUTE NEUT (AUTO) 1.7 10^3/uL (1.7-8.2); EOSINOPHILS % (AUTO) 4.1 % (0-6); HEMATOCRIT 45.7 % (36.0-47.0); HEMOGLOBIN 15.7 g/dL (12.0-15.5); LYMPHOCYTES % (AUTO) 45.7 % (13-45); MEAN CORPUSCULAR HEMOGLOBIN 34.1 pg (27.0-33.4); MEAN CORPUSCULAR HGB CONC 34.3 g/dL (32.0-36.0); MEAN CORPUSCULAR VOLUME 99 fl (80-97); MONOCYTES % (AUTO) 10.4 % (3-13); PLATELET COUNT 268 10^3/uL (150-450); RED CELL DISTRIBUTION WIDTH 13.9 % (11.5-14.0); SEGMENTED NEUTROPHILS % (AUTO) 38.8 % (42-78); TOTAL CELLS COUNTED % (AUTO) 100 %; WHITE BLOOD COUNT 4.4 10^3/uL (4.0-10.5)
[2019-02-26 00:41] LABS: APPEARANCE,URINE CLEAR; BILIRUBIN,URINE NEGATIVE (NEGATIVE); COLOR,URINE COLORLESS; GLUCOSE, URINE NEGATIVE (NEGATIVE); KETONES,URINE NEGATIVE (NEGATIVE); LEUKOCYTE ESTERASE,URINE NEGATIVE (NEGATIVE); NITRITE,URINE NEGATIVE (NEGATIVE); PROTEIN,URINE NEGATIVE (NEGATIVE); URINE SPECIFIC GRAVITY 1.002; UROBILINOGEN,URINE NEGATIVE mg/dL (<2.0)
--- NOTE | 2019-02-26 01:02 | ER Document Report ---
ED Psych Disorder / Suicide - General Chief Complaint: Suicidal Ideation no plan Stated Complaint: PSYCH Time Seen by Provider: 02/25/19 23:43 Primary Care Provider: AYDEE LASSITER PA-C [Primary Care Provider] - Follow up as needed TRAVEL OUTSIDE OF THE [place] IN LAST 30 DAYS: No - HPI Notes: This is a 58-year-old female who presents today with a complaint of suicidal ideations. Patient states that she is tired of living and she just wants to . She does not have any specific plan at this time. Patient admits to have been drinking heavily also. Patient states that she just wishes she was asleep and not wake up again. She has no physical complaints at this time. - Related Data Allergies/Adverse Reactions: Penicillins Allergy (Unknown, Verified 02/25/19 23:43) Past Medical History - Social History Smoking Status: Current Every Day Smoker Chew tobacco use (# tins/day): No Frequency of alcohol use: Heavy Drug Abuse: Marijuana Family History: CAD, DM, Hyperlipidemia, Hypertension. denies: Arthritis, COPD, CVA, Malignancy, Thyroid Disfunction Patient has suicidal ideation: Yes Patient has homicidal ideation: No Renal/ Medical History: Denies: Hx Peritoneal Dialysis Psychiatric Medical History: Reports: Hx Depression - Immunizations Immunizations up to date: Yes Hx Diphtheria, Pertussis, Tetanus Vaccination: Yes - 08/13/2017 Review of Systems - Review of Systems Constitutional: denies: Fever Cardiovascular: denies: Chest pain, Palpitations, Heart racing Gastrointestinal: denies: Abdominal pain, Diarrhea, Nausea Neurological/Psychological: Depression, Suicidal ideation. denies: Headaches, Speech impairment -: Yes All other systems reviewed and negative Physical Exam - Vital signs Vitals: Temp Resp BP Pulse Ox 97.7 F 18 127/77 H 96 02/25/19 23:48 02/25/19 23:48 02/25/19 23:48 02/25/19 23:48 - General General appearance: Appears well, Alert - Respiratory Respiratory status: No respiratory distress Chest status: Nontender Breath sounds: Normal Chest palpation: Normal - Cardiovascular Rhythm: Regular Heart sounds: Normal auscultation Murmur: No - Abdominal Inspection: Normal Distension: No distension Bowel sounds: Normal Tenderness: Nontender Organomegaly: No organomegaly - Neurological Neuro grossly intact: Yes Cognition: Normal Orientation: AAOx4 Kim Coma Scale Eye Opening: Spontaneous Kim Coma Scale Verbal: Oriented Houston Coma Scale Motor: Obeys Commands [place] Coma Scale Total: 15 Speech: Normal Motor strength normal: LUE, RUE, LLE, RLE Sensory: Normal - Psychological Associated symptoms: Anxious, Depressed - Tearful, admits to suicidal ideation., Irritable - Skin Skin Temperature: Warm Skin Moisture: Dry Skin Color: Normal Course - Re-evaluation Re-evalutation: 02/26/19 01:01 Clinical picture is consistent with alcohol abuse and suicidal ideation. I will get behavioral health assessment done. We will put her on a CIWA scale given history of alcohol abuse. 02/26/19 06:32 Patient is stable. Awaiting behavioral health assessment. - Vital Signs Vital signs: Temp Pulse Resp BP Pulse Ox 97.7 F 18 127/77 H 96 02/25/19 23:48 02/25/19 23:48 02/25/19 23:48 02/25/19 23:48 - Laboratory Result Diagrams: 02/26/19 00:05 02/26/19 00:05 Laboratory results interpreted by me: 02/26/19 02/26/19 00:05 00:05 Hgb 15.7 H MCV 99 H MCH 34.1 H Lymph % (Auto) 45.7 H Seg Neutrophils % 38.8 L Salicylates < 1.0 L Acetaminophen < 10 L Discharge - Discharge Clinical Impression: Suicidal ideation, Alcohol abuse Condition: Stable Disposition: OTHER Referrals: ADYEE LASSITER PA-C [Primary Care Provider] - Follow up as needed
[2019-02-26 01:08] LABS: URINE AMPHETAMINES SCREEN NEGATIVE; URINE BARBITURATES SCREEN NEGATIVE; URINE BENZODIAZEPINES SCREEN NEGATIVE; URINE COCAINE SCREEN NEGATIVE; URINE MARIJUANA (THC) SCREEN NEGATIVE; URINE METHADONE SCREEN NEGATIVE; URINE PHENCYCLIDINE SCREEN NEGATIVE
[2019-02-26 01:11] LABS: ALBUMIN 3.9 g/dL (3.5-5.0); ALKALINE PHOSPHATASE 85 U/L (38-126); ANION GAP 12 (5-19); ASPARTATE AMINO TRANSFERASE 35 U/L (14-36); BILIRUBIN,DIRECT 0.1 mg/dL (0.0-0.4); BILIRUBIN,TOTAL 0.2 mg/dL (0.2-1.3); BLOOD UREA NITROGEN 8 mg/dL (7-20); CALCIUM 9.3 mg/dL (8.4-10.2); CARBON DIOXIDE 24 mmol/L (22-30); CHLORIDE 103 mmol/L (98-107); GLUCOSE 81 mg/dL (75-110); POTASSIUM 4.5 mmol/L (3.6-5.0); TOTAL PROTEIN 6.8 g/dL (6.3-8.2)
[2019-02-26 01:12] LABS: ALCOHOL 257 mg/dL (NONE DETECTED)
[2019-02-26 01:13] LABS: ACETAMINOPHEN < 10 ug/mL (10-30); SALICYLATE < 1.0 mg/dL (2.0-20.0)
--- NOTE | 2019-02-26 11:45 | ER Document Report ---
ED Psych Disorder / Suicide - General Chief Complaint: Suicidal Ideation no plan Stated Complaint: PSYCH Time Seen by Provider: 02/25/19 23:43 Primary Care Provider: [facility] [Outside] - Follow up as needed [facility] [Outside] - 02/28/19 8:00 am ([facility] allows walk in Thursday- Thursday 8:00AM-4:30PM) AYDEE LASSITER PA-C [Primary Care Provider] - Follow up as needed Notes: 58-year-old female presented overnight with complaint of suicidal ideations. Patient stated that she is tired of living and she just wants to . She does not have any specific plan at this time. Patient admitted to have been drinking heavily also. Patient states that she just wished she was asleep and not wake up again. She has no physical complaints at this time. Patient now sober and feeling much better, no SI/HI, no auditory or visual hallucinations, feels depressed. TRAVEL OUTSIDE OF THE [place] IN LAST 30 DAYS: No - Related Data Allergies/Adverse Reactions: Penicillins Allergy (Unknown, Verified 02/25/19 23:43) Past Medical History - Social History Smoking Status: Current Every Day Smoker Chew tobacco use (# tins/day): No Frequency of alcohol use: Heavy Drug Abuse: Marijuana Family History: CAD, DM, Hyperlipidemia, Hypertension. denies: Arthritis, COPD, CVA, Malignancy, Thyroid Disfunction Patient has suicidal ideation: Yes Patient has homicidal ideation: No Renal/ Medical History: Denies: Hx Peritoneal Dialysis Psychiatric Medical History: Reports: Hx Depression - Immunizations Immunizations up to date: Yes Hx Diphtheria, Pertussis, Tetanus Vaccination: Yes - 08/13/2017 Review of Systems - Review of Systems Constitutional: No symptoms reported EENT: No symptoms reported Cardiovascular: No symptoms reported Respiratory: No symptoms reported Gastrointestinal: No symptoms reported Genitourinary: No symptoms reported Female Genitourinary: No symptoms reported Musculoskeletal: No symptoms reported Skin: No symptoms reported Hematologic/Lymphatic: No symptoms reported Neurological/Psychological: See HPI Physical Exam - Vital signs Vitals: Temp Resp BP Pulse Ox 97.7 F 18 127/77 H 96 02/25/19 23:48 02/25/19 23:48 02/25/19 23:48 02/25/19 23:48 - Notes Notes: PHYSICAL EXAMINATION: Reviewed vital signs and charting by RN GENERAL: Alert, interacts well. No acute distress. HEAD: Normocephalic, atraumatic. EYES: Pupils equal and round. Extraocular movements intact. ENT: Oral mucosa moist, tongue midline. NECK: Full range of motion. Trachea midline. LUNGS: Clear to auscultation bilaterally, no wheezes, rales, or rhonchi. No respiratory distress. HEART: Regular rate and rhythm. No murmur ABDOMEN: soft, non-tender. No distention. Bowel sounds present EXTREMITIES: Moves all 4 extremities spontaneously. No edema, No cyanosis. PSYCH: Normal affect, normal mood. SKIN: Warm, dry, normal turgor. No rashes or lesions noted. Course - Re-evaluation Re-evalutation: 02/26/19 11:44 Patient initially set up with a bed at [facility]. Spoke with the mental health team and patient had Gerald called her wishing to leave. Patient is sober now and she states that when she drinks heavily she gets these depressed feelings and want feelings of wanting to hurt herself. Patient told that there will be a bed available at 12:00 or 1:00 this afternoon. Patient states that she wishes to go home. As the rounding provider this AM, I assessed the patient's labs, vitals, and records. No concerning findings this morning. Patient denies any acute complaints. Patient is cleared for disposition by psychiatry. It appears the patient is medically stable for transfer or discharge and mental health wishes to discharge patient with close follow-up services in place. - Vital Signs Vital signs: Temp Pulse Resp BP Pulse Ox 97.7 F 18 127/77 H 96 02/25/19 23:48 02/25/19 23:48 02/25/19 23:48 02/25/19 23:48 - Laboratory Result Diagrams: 02/26/19 00:05 02/26/19 00:05 Laboratory results interpreted by me: 02/26/19 02/26/19 00:05 00:05 Hgb 15.7 H MCV 99 H MCH 34.1 H Lymph % (Auto) 45.7 H Seg Neutrophils % 38.8 L Salicylates < 1.0 L Acetaminophen < 10 L Discharge - Discharge Clinical Impression: Suicidal ideation, Alcohol abuse, Alcohol intoxication Condition: Stable Disposition: HOME, SELF-CARE Additional Instructions: You have been evaluated by both medical and behavioral health providers while in the emergency department. You have been cleared from both medical and psychiatric services. Alcohol is a depressant, is mind altering, inhibits cognition and impairs insight/judgment/impulse control. If you are depressed it will likely increase it. Alcohol is detrimental physically/medically (heart, liver, brain and other organs). You are recommended to go to [facility] or at the very least follow up with outpatient services for ongoing support/care/treatment. CHRONIC ALCOHOLISM and ALCOHOL ABUSE: Your evaluation reveals evidence of chronic alcoholism, an addiction to alcohol. The tendency to alcoholism may be inherited. Chronic use of alcohol weakens muscles, causes fatty deposits in the liver, damages the stomach, makes you more prone to infections, and can cause defects in unborn children. In the long run, brain atrophy and cirrhosis of the liver result. You are also at greater risk for certain types of cancer, such as cancer of the mouth, throat, stomach, and liver. Counselling services are available to help you. In-hospital treatment programs often help. Support groups such as Alcoholics Anonymous can be very useful in beating this addiction. Your physician can make a referral for you. As alcoholics often are prone to other addictions, you should discuss your use of any other medications with the doctor. ALCOHOL WITHDRAWAL: (concerns for if you choose to abstain) Your symptoms are caused by alcohol withdrawal. After a period of frequent drinking, the brain and body are changed by the alcohol. When you quit or reduce your drinking, the nervous system becomes unstable. Withdrawal symptoms can start a few hours after your last drink, but sometimes don't begin until a couple of days later. Symptoms can include shakiness, sweating, insomnia, n ausea, vomiting, fearfulness, hallucinations, and seizures. In addition to the acute effects of alcohol withdrawal, we often have to deal with the medical effects of alcoholism. These problems often include dehydration, stomach irritation, intestinal bleeding, low blood sugar, liver disease, and pancreas inflammation. Treatment for alcohol withdrawal includes mild sedatives, vitamins, and fluids. You need to be with someone who can help if symptoms become severe. Many patients can withdraw at home. Admission to the hospital or a detox facility may be necessary if withdrawal symptoms are severe and uncontrollable. Abstaining from alcohol is the only effective long-term treatment. If you start drinking again, you will not be able to control yourself after the first drink. Treatment programs are available. In addition, many alcoholics benefit from Alcoholics Anonymous or other support groups available through your counselor or temple signs sales representative. AL-ANON and ALA-TEEN are support groups for friends and family members of an alcoholic. Go to the emergency room if you develop persistent vomiting, severe abdominal pain, fever, shortness of breath, hallucinations, uncontrollable tremors, or seizures. DEPRESSION: Your evaluation reveals that you have mental depression. While symptoms may be vague, they often include disturbance of sleep, fatigue, loss of appetite, and general loss of interest in life. While depression may be a side effect of drugs, or a reaction to a major change in your life, many cases have no known cause. If depression is acute, and related to a major loss in your life, you can expect it to clear completely with time. If you have been depressed a long time, are prone to repeated bouts of depression or low mood, or have been thinking of suicide, get help. Depression can be treated with anti-depressant medication and counselling. Long-term depression will often take a few weeks to clear, even with appropriate medication. Follow-up care is important. SUICIDAL IDEATION: Suicidal ideation is a common medical term for thoughts about suicide, which may be as detailed as a formulated plan, without the suicidal act itself. Although most people who undergo suicidal ideation do not commit suicide, some go on to make suicide attempts. The range of suicidal ideation varies greatly from fleeting to detailed planning, role playing, and unsuccessful attempts. While thoughts about suicide are common, most people do not carry out serious actions to commit suicide. Based upon your evaluation and discussion with you, we do not believe you are currently at risk to act upon your thoughts of suicide. You have agreed to return to the Emergency Department, at any time, if you feel inclined to act upon your suicidal thoughts. FOLLOW-UP CARE: You at first wanted linkage to [facility] for voluntary dual diagnosis substance abuse and mental health treatment which was initiated. You then changed your mind and declined linkage/referral. You were encouraged to follow through but still declined. You should follow up with outpatient dual diagnosis mental health and substance abuse treatment at [facility] (walk in Thursday-Thursday 8:00AM-4:30PM) and should do so as a walk in Thursday (02/28/19) morning. You have been given outpatient resources which includes information for [facility], [facility] and [facility]. If you experience worsening or a significant change in your symptoms, notify the physician immediately, utilize mobile crisis or return to the Emergency Department at any time for re-evaluation. Referrals: [facility] [Outside] - Follow up as needed [facility] [Outside] - 02/28/19 8:00 am ([facility] allows walk in Thursday- Thursday 8:00AM-4:30PM) AYDEE LASSITER PA-C [Primary Care Provider] - Follow up as needed
[2019-02-26 12:49] VITALS: BP 128/72
--- NOTE | 2019-02-26 19:24 | EKG REPORT ---
SEVERITY:- BORDERLINE ECG - SINUS RHYTHM BORDERLINE R WAVE PROGRESSION, ANTERIOR LEADS BORDERLINE PROLONGED QT INTERVAL : Confirmed by: Lisa Boswell MD 26-Feb-2019 19:23:36
--- NOTE | 2019-02-27 22:04 | PSYCHOLOGICAL NOTE ---
Psych Note - Psych Note Date seen by psych provider: 02/26/19 Time seen by psych provider: 07:57 - Chart review at 0757. Evaluation from 13- 17. Coordination with [facility] at 1004. Psych Note: Presenting Problem: SI (tired of living, just wants to , no plan, just go to sleep and not wake up), Depression, depression worsened after drinking 11 beers, Alcohol Intoxication (Serum Alcohol Level was 257 upon arrival to the ED). She stated "I am worried about my mom, she is not doing good, she has an aneurism in her heart, she lives in [place] and I cannot make a trip to her." She was tearful when talking about her mother. She admitted she drinks regularly. She identified she called the [facility] last evening but they had no beds available so she then called EMS to come to the ED (she was seeking help on her won which shows good insight/judgment/impulse control). She acknowledged she had been to the [facility] previously and was discharged 02/16/19. She has been seen by [facility] 02/18/19 (would have been just after discharge from [facility]) for SI and alcohol use, at that time the crisis was marital issues, she admitted to relapse and son was trying to get her to a 6 months program in [place]. Patient was alert and oriented x5 with linear thinking, mood was euthymic with congruent affect except when she talked about her mother then it was depressed with tearful affect (appropriate), she had time to sober up, she denied current SI/HI, previous SI was passive (no plan, no action, no intent), she made fair eye contact, she was able to engage/process and carry on dialogue conversation which was within normal limits for rate/tone/prosody. Initially she wanted to go to the [facility] and gave verbal consent for linkage and referral. Contacted [facility] and spoke to Irish who stated female beds would be opening up around [phone] and to call back. Patient made aware. She wanted to call her . called in to check on her about the time she wanted to call him. She decided against [facility] and arranged for to provide transportation. Diagnosis: Ill Mother ad Stress surrounding that Alcohol Use Disorder, Severe Depressive Disorder Impression/Plan: Patient cleared from acute psychiatric services. Patient was alert and oriented x5 with linear thinking, mood was euthymic with congruent affect except when she talked about her mother then it was depressed with tearful affect (appropriate), she had time to sober up, she denied current SI/HI, previous SI was passive (no plan, no action, no intent), she made fair eye contact, she was able to engage/process and carry on dialogue conversation which was within normal limits for rate/tone/prosody. She at first wanted referral to [facility] then said she would just go home with . provided transportation. Encouraged her to follow through with going to [facility] but she declined. Provided patient with the [facility] resource sheet which highlighted [facility], listed the detox facilities and specifically highlighted [facility] and documented [facility] for outpatient follow up with recommendation to walk in Thursday (02/28/19) morning. She said she would go to [facility] 02/28/19. Psychoeducated her on how alcohol is a depressant. Consulted with Dr. Hernandez regarding the management and care of patient. ED Physician in agreement with recommendations.
== END 2019-02-26 12:40 | disposition home or self-care (01) ==
LOC: ER 23:20
DX: R45.851 Suicidal ideations (principal); F10.129 Alcohol abuse with intoxication, unspecified; F17.200 Nicotine dependence, unspecified, uncomplicated
CPT/HCPCS: 36415; 80053; 80307; 81001; 85025; 93005; 93010; 99285

== ENCOUNTER 2019-03-12 02:10 | Emergency (ER) | payer SELFPAY ==
[2019-03-12] MEDS ORDERED: LORAZEPAM 0.5 MG TABLET PO ONE (03:07)
--- NOTE | 2019-03-12 03:11 | ER Document Report ---
ED Psych Disorder / Suicide - General Chief Complaint: Depression Stated Complaint: ANXIETY Primary Care Provider: AYDEE LASSITER PA-C [Primary Care Provider] - Follow up as needed Notes: Patient has history of anxiety also history of depression she claims that due to family issues she has become so anxious she has been depressed to the point where she has "thought of killing herself" she does not have a plan. She denies homicidal ideation auditory visual hallucinations TRAVEL OUTSIDE OF THE [place] IN LAST 30 DAYS: No - Related Data Allergies/Adverse Reactions: Penicillins Allergy (Unknown, Verified 02/25/19 23:43) Past Medical History - Social History Smoking Status: Current Every Day Smoker Frequency of alcohol use: Heavy Drug Abuse: Marijuana Family History: CAD, DM, Hyperlipidemia, Hypertension. denies: Arthritis, COPD, CVA, Malignancy, Thyroid Disfunction Patient has suicidal ideation: Yes Patient has homicidal ideation: No Renal/ Medical History: Denies: Hx Peritoneal Dialysis Psychiatric Medical History: Reports: Hx Depression - Immunizations Immunizations up to date: Yes Hx Diphtheria, Pertussis, Tetanus Vaccination: Yes - 08/13/2017 Review of Systems - Review of Systems Constitutional: denies: No symptoms reported, See HPI, Chills, Diaphoresis, Fever, Malaise, Weakness, Other, Weight gain, Weight loss, Recent illness EENT: denies: No symptoms reported, See HPI, Eye pain, Eye discharge, Blurred vision, Tearing, Double vision, Ear pain, Ear discharge, Nose pain, Nose congestion, Nose discharge, Sinus pressure, Sinus discharge, Throat pain, Di fficulty swallowing, Throat swelling, Mouth pain, Mouth swelling, Dental problem, Vertigo, Other Respiratory: denies: No symptoms reported, See HPI, Cough, Hurts to breathe, H emoptysis, Short of breath, Sputum, Stridor, Wheezing, Other Gastrointestinal: denies: See HPI, Abdomen distended, Abdominal pain, Diarrhea, Nausea, Vomiting, Constipation, Blood streaked bowels, Poor appetite, Poor fluid intake, Blood in vomit, Black stools, Rectal bleeding, Last bowel movement, Fecal incontinence, Other Neurological/Psychological: Depression, Anxiety, Suicidal ideation. denies: No symptoms reported, See HPI, Confusion, Dementia, Hallucinations, Homicidal ideation, Sensory change, Weakness, Gait changes, Loss of power, Paralysis, Seizure, Lost consciousness, Headaches, Speech impairment, Numbness, Tingling, Tremor, Other -: Yes All other systems reviewed and negative Physical Exam - Vital signs Vitals: Temp Pulse Resp BP Pulse Ox 97.6 F 85 18 119/67 100 03/12/19 02:38 03/12/19 02:38 03/12/19 02:38 03/12/19 02:38 03/12/19 02:38 Notes: PHYSICAL EXAMINATION: GENERAL: Well-appearing, well-nourished and in no acute distress. HEAD: Atraumatic, normocephalic. EYES: Pupils equal round and reactive to light, extraocular movements intact, sclera anicteric, conjunctiva are normal. ENT: nares patent, oropharynx clear without exudates. Moist mucous membranes. NECK: Normal range of motion, supple without lymphadenopathy LUNGS: Breath sounds clear to auscultation bilaterally and equal. No wheezes rales or rhonchi. HEART: Regular rate and rhythm without murmurs ABDOMEN: Soft, nontender, normoactive bowel sounds. No guarding, no rebound. No masses appreciated. EXTREMITIES: Normal range of motion, no pitting or edema. No cyanosis. NEUROLOGICAL: No focal neurological deficits. Moves all extremities spontaneously and on command. PSYCH: Flat affect with anxious overtones. Suicidal ideations "I am thinking of killing myself" denies homicidal ideations auditory hallucinations. SKIN: Warm, Dry, normal turgor, no rashes or lesions noted. Course - Vital Signs Vital signs: Temp Pulse Resp BP Pulse Ox 97.6 F 85 18 119/67 100 03/12/19 02:38 03/12/19 02:38 03/12/19 02:38 03/12/19 02:38 03/12/19 02:38 - Laboratory Result Diagrams: 03/12/19 03:25 03/12/19 03:25 Laboratory results interpreted by me: 03/12/19 03/12/19 03:25 03:25 Hgb 16.1 H Hct 47.3 H MCV 99 H MCH 33.7 H RDW 14.1 H Sodium 145.7 H Chloride 109 H Discharge - Discharge Clinical Impression: Suicidal ideations, Anxiety, Intoxication Condition: Fair Disposition: PSYCH HOSP/UNIT Referrals: AYDEE LASSITER PA-C [Primary Care Provider] - Follow up as needed
[2019-03-12 03:47] LABS: APPEARANCE,URINE CLEAR; BILIRUBIN,URINE NEGATIVE (NEGATIVE); COLOR,URINE STRAW; GLUCOSE, URINE NEGATIVE (NEGATIVE); KETONES,URINE NEGATIVE (NEGATIVE); LEUKOCYTE ESTERASE,URINE NEGATIVE (NEGATIVE); NITRITE,URINE NEGATIVE (NEGATIVE); PROTEIN,URINE NEGATIVE (NEGATIVE); URINE SPECIFIC GRAVITY 1.003; UROBILINOGEN,URINE NEGATIVE mg/dL (<2.0)
[2019-03-12 03:49] LABS: ABSOLUTE EOSINOPHILS # (AUTO) 0.1 10^3/uL (0.0-0.6); ABSOLUTE LYMPHOCYTES (AUTO) 1.7 10^3/uL (0.5-4.7); ABSOLUTE MONOCYTES (AUTO) 0.3 10^3/uL (0.1-1.4); ABSOLUTE NEUT (AUTO) 2.8 10^3/uL (1.7-8.2); EOSINOPHILS % (AUTO) 2.4 % (0-6); HEMATOCRIT 47.3 % (36.0-47.0); HEMOGLOBIN 16.1 g/dL (12.0-15.5); LYMPHOCYTES % (AUTO) 34.3 % (13-45); MEAN CORPUSCULAR HEMOGLOBIN 33.7 pg (27.0-33.4); MEAN CORPUSCULAR HGB CONC 34.1 g/dL (32.0-36.0); MEAN CORPUSCULAR VOLUME 99 fl (80-97); MONOCYTES % (AUTO) 6.9 % (3-13); PLATELET COUNT 237 10^3/uL (150-450); RED BLOOD COUNT 4.79 10^6/uL (3.72-5.28); RED CELL DISTRIBUTION WIDTH 14.1 % (11.5-14.0); SEGMENTED NEUTROPHILS % (AUTO) 55.4 % (42-78); TOTAL CELLS COUNTED % (AUTO) 100 %
[2019-03-12 03:54] LABS: ALBUMIN 4.6 g/dL (3.5-5.0); ALCOHOL 245 mg/dL (NONE DETECTED); ALKALINE PHOSPHATASE 97 U/L (38-126); ANION GAP 12 (5-19); ASPARTATE AMINO TRANSFERASE 30 U/L (14-36); BILIRUBIN,DIRECT 0.1 mg/dL (0.0-0.4); BILIRUBIN,TOTAL 0.4 mg/dL (0.2-1.3); BLOOD UREA NITROGEN 8 mg/dL (7-20); CALCIUM 9.6 mg/dL (8.4-10.2); CARBON DIOXIDE 25 mmol/L (22-30); CHLORIDE 109 mmol/L (98-107); GLUCOSE 92 mg/dL (75-110); POTASSIUM 4.1 mmol/L (3.6-5.0); TOTAL PROTEIN 7.7 g/dL (6.3-8.2)
[2019-03-12 04:00] LABS: URINE AMPHETAMINES SCREEN NEGATIVE; URINE BARBITURATES SCREEN NEGATIVE; URINE BENZODIAZEPINES SCREEN NEGATIVE; URINE COCAINE SCREEN NEGATIVE; URINE MARIJUANA (THC) SCREEN UNCONFIRMED POSITIVE; URINE METHADONE SCREEN NEGATIVE; URINE PHENCYCLIDINE SCREEN NEGATIVE
[2019-03-12 13:47] VITALS: BP 118/78
--- NOTE | 2019-03-12 13:50 | ER Document Report ---
Doctor's Note Notes: 03/12/19 13:48 Patient is not intoxicated at this time and is completely alert and oriented x3. Patient currently denies suicidal or homicidal ideation. Patient states she does not have a plan to hurt herself. Patient states that she [facility] with [facility] and has a appointment with them on Thursday. Patient reports she has been to [facility] multiple times patient was given a resource sheet for detox services in the area by mental health. Patient has a steady gait and shows no signs of withdrawal at this time. Patient stable for discharge. Has been to product picker the patient emergency department.
== END 2019-03-12 13:46 | disposition home or self-care (01) ==
LOC: ER 02:10
DX: R45.851 Suicidal ideations (principal); F41.9 Anxiety disorder, unspecified; F10.129 Alcohol abuse with intoxication, unspecified; F17.200 Nicotine dependence, unspecified, uncomplicated
CPT/HCPCS: 36415; 80053; 80307; 81001; 84443; 85025; 99285

== ENCOUNTER 2019-03-22 23:58 | Emergency (ER) | payer SELFPAY ==
--- NOTE | 2019-03-23 00:10 | ER Document Report ---
ED General - General Stated Complaint: SUICIDAL IDEATIONS Time Seen by Provider: 03/23/19 00:09 Primary Care Provider: AYDEE LASSITER PA-C [Primary Care Provider] - Follow up as needed Notes: Patient is a 58-year-old female with history of alcohol use and abuse that presents to the emergency department for chief complaint of depression, suicidal ideation, and alcohol intoxication. Patient states that tonight she was drinking beer, and was around her , and his stepson, they are getting into a significant argument, and she states that she somehow got the middle of it and states that she can take it anymore, she is been feeling rather depressed recently, has been trying to get into a treatment center for her alcohol use, got to the point this evening where she feels that she can go on anymore, she feels helpless and hopeless and was thinking about suicide. She denies any specific plan at this time. She will not elaborate either on how she feels when it comes to her depressive state currently. She states she did take to Seroquel that were prescribed to her friend to try to help calm her down but it was not helping so she came to the emergency department. She denies any other drug use, only alcohol and she states she smokes cigarettes. She denies having any hallucinations or confusion. Past Medical History: Depression, alcohol abuse Past Surgical History: Denies any recent or pertinent surgical history Social History: Admits to smoking cigarettes, and regular alcohol use, admits to marijuana use Family History: Reviewed and noncontributory for presenting illness Allergies: Reviewed, see documented allergy list. REVIEW OF SYSTEMS: Other than noted above, the 12 point review of systems was reviewed with the patient and were negative, all pertinent findings are included in the HPI. PHYSICAL EXAMINATION: Vital signs reviewed, nursing noted reviewed. GENERAL: Patient appears older than stated age, tearful on exam, but no acute distress HEAD: Atraumatic, normocephalic. EYES: Eyes appear normal, extraocular movements intact, sclera anicteric, conjunctiva are normal. PERRLA ENT: nares patent, oropharynx clear without exudates. Moist mucous membranes. NECK: Normal range of motion, supple without lymphadenopathy LUNGS: Breath sounds clear to auscultation bilaterally and equal. No wheezes rales or rhonchi. HEART: Regular rate and rhythm without murmurs ABDOMEN: Soft, nontender, normoactive bowel sounds. No rebound, guarding, or rigidity. No masses appreciated. EXTREMITIES: Nontender, good range of motion, no pitting or edema. No tremor noted. NEUROLOGICAL: No focal neurological deficits. Moves all extremities spontaneously Motor and sensory grossly intact on exam. PSYCH: Patient is tearful, but also appears anxious, no active hallucinations noted, no delusions. Patient is voicing suicidal ideation at this time without plan. SKIN: Warm, Dry, normal turgor, no rashes or lesions noted on exposed skin TRAVEL OUTSIDE OF THE [place] IN LAST 30 DAYS: No - Related Data Allergies/Adverse Reactions: Penicillins Allergy (Unknown, Verified 02/25/19 23:43) Past Medical History - Social History Smoking Status: Current Every Day Smoker Family History: CAD, DM, Hyperlipidemia, Hypertension. denies: Arthritis, COPD, CVA, Malignancy, Thyroid Disfunction Renal/ Medical History: Denies: Hx Peritoneal Dialysis Psychiatric Medical History: Reports: Hx Depression - Immunizations Immunizations up to date: Yes Hx Diphtheria, Pertussis, Tetanus Vaccination: Yes - 08/13/2017 Physical Exam - Vital signs Vitals: Temp Pulse Resp BP Pulse Ox 97.7 F 92 18 130/73 H 97 03/23/19 00:22 03/23/19 00:22 03/23/19 00:22 03/23/19 00:22 03/23/19 00:22 Course - Re-evaluation Re-evalutation: Patient seen and examined, vital signs reviewed, patient was emotionally distraught on exam, she was tearful, and appeared anxious as well, she also appeared intoxicated. Blood work was sent, due to patient's suicidal ideations, and will evaluate. Her EKG was unremarkable. Patient blood work reviewed and demonstrated essentially unremarkable blood work, was positive for THC, and alcohol of 121. Patient was treated with Ativan for her anxiety, 2 mg p.o. This point I feel the patient is medically clear, to be seen by behavioral health in the morning. IVC paperwork was filled out due to the patient's active suicidal ideations, and patient understood and agreed with this plan of care. Laboratory 03/23/19 03/23/19 03/23/19 00:45 00:45 02:00 WBC 5.5 RBC 4.31 Hgb 15.0 Hct 43.1 MCV 100 H MCH 34.7 H MCHC 34.7 RDW 14.2 H Plt Count 204 Lymph % (Auto) 30.0 [place] % (Auto) 10.6 Eos % (Auto) 3.3 Baso % (Auto) 0.8 Absolute Neuts (auto) 3.1 Absolute Lymphs (auto) 1.7 Absolute Monos (auto) 0.6 Absolute Eos (auto) 0.2 Absolute Basos (auto) 0.0 Seg Neutrophils % 55.3 Sodium Potassium Chloride Carbon Dioxide Anion Gap BUN Creatinine Est GFR ( Amer) Est GFR (MDRD) Non-Af Glucose Calcium Total Bilirubin Direct Bilirubin Neonat Total Bilirubin Neonat Direct Bilirubin Neonat Indirect Bili AST ALT Alkaline Phosphatase Total Protein Albumin Urine Color COLORLESS Urine Appearance CLEAR Urine pH 6.0 Ur Specific [place] 1.002 Urine Protein NEGATIVE Urine Glucose (UA) NEGATIVE Urine Ketones NEGATIVE Urine Blood NEGATIVE Urine Nitrite NEGATIVE Urine Bilirubin NEGATIVE Urine Urobilinogen NEGATIVE Ur Leukocyte Esterase NEGATIVE Urine RBC (Auto) 0 Urine Ascorbic Acid NEGATIVE Salicylates Urine Opiates Screen NEGATIVE Urine Methadone Screen NEGATIVE Acetaminophen Ur Barbiturates Screen NEGATIVE Ur Phencyclidine Scrn NEGATIVE Ur Amphetamines Screen NEGATIVE U Benzodiazepines Scrn NEGATIVE Urine Cocaine Screen NEGATIVE U Marijuana (THC) Screen UNCONFIRMED POSITIVE Serum Alcohol 03/23/19 02:00 WBC RBC Hgb Hct MCV MCH MCHC RDW Plt Count Lymph % (Auto) [place] % (Auto) Eos % (Auto) Baso % (Auto) Absolute Neuts (auto) Absolute Lymphs (auto) Absolute Monos (auto) Absolute Eos (auto) Absolute Basos (auto) Seg Neutrophils % Sodium 137.9 Potassium 4.2 Chloride 105 Carbon Dioxide 21 L Anion Gap 12 BUN 8 Creatinine 0.62 Est GFR ( Amer) > 60 Est GFR (MDRD) Non-Af > 60 Glucose 95 Calcium 9.4 Total Bilirubin 0.4 Direct Bilirubin 0.1 Neonat Total Bilirubin Not Reportable Neonat Direct Bilirubin Not Reportable Neonat Indirect Bili Not Reportable AST 35 ALT 26 Alkaline Phosphatase 91 Total Protein 7.1 Albumin 4.2 Urine Color Urine Appearance Urine pH Ur Specific [place] Urine Protein Urine Glucose (UA) Urine Ketones Urine Blood Urine Nitrite Urine Bilirubin Urine Urobilinogen Ur Leukocyte Esterase Urine RBC (Auto) Urine Ascorbic Acid Salicylates < 1.0 L Urine Opiates Screen Urine Methadone Screen Acetaminophen < 10 L Ur Barbiturates Screen Ur Phencyclidine Scrn Ur Amphetamines Screen U Benzodiazepines Scrn Urine Cocaine Screen U Marijuana (THC) Screen Serum Alcohol 121 - Vital Signs Vital signs: Temp Pulse Resp BP Pulse Ox 97.7 F 92 18 130/73 H 97 03/23/19 00:22 03/23/19 00:22 03/23/19 00:22 03/23/19 00:22 03/23/19 00:22 - Laboratory Result Diagrams: 03/23/19 02:00 03/23/19 02:00 Laboratory results interpreted by me: 03/23/19 03/23/19 02:00 02:00 MCV 100 H MCH 34.7 H RDW 14.2 H Carbon Dioxide 21 L Salicylates < 1.0 L Acetaminophen < 10 L - EKG Interpretation by Me Additional EKG results interpreted by me: EKG demonstrates normal sinus rhythm with a ventricular rate of 88 bpm, normal axis, QTC 484 ms, no evidence of acute ischemia in this EKG, this is compared with a prior EKG from 02/26/2019, without significant change. Discharge - Discharge Clinical Impression: Suicidal ideations, Alcohol abuse Condition: Stable Disposition: PSYCH HOSP/UNIT Referrals: AYDEE LASSITER PA-C [Primary Care Provider] - Follow up as needed
[2019-03-23 00:55] LABS: APPEARANCE,URINE CLEAR; BILIRUBIN,URINE NEGATIVE (NEGATIVE); COLOR,URINE COLORLESS; GLUCOSE, URINE NEGATIVE (NEGATIVE); KETONES,URINE NEGATIVE (NEGATIVE); LEUKOCYTE ESTERASE,URINE NEGATIVE (NEGATIVE); NITRITE,URINE NEGATIVE (NEGATIVE); PROTEIN,URINE NEGATIVE (NEGATIVE); URINE SPECIFIC GRAVITY 1.002; UROBILINOGEN,URINE NEGATIVE mg/dL (<2.0)
[2019-03-23] MEDS ORDERED: LORAZEPAM 1 MG TABLET PO ONE (02:05)
[2019-03-23 02:16] LABS: ABSOLUTE EOSINOPHILS # (AUTO) 0.2 10^3/uL (0.0-0.6); ABSOLUTE LYMPHOCYTES (AUTO) 1.7 10^3/uL (0.5-4.7); ABSOLUTE MONOCYTES (AUTO) 0.6 10^3/uL (0.1-1.4); ABSOLUTE NEUT (AUTO) 3.1 10^3/uL (1.7-8.2); BASOPHILS % (AUTO) 0.8 % (0-2); EOSINOPHILS % (AUTO) 3.3 % (0-6); HEMATOCRIT 43.1 % (36.0-47.0); MEAN CORPUSCULAR HEMOGLOBIN 34.7 pg (27.0-33.4); MEAN CORPUSCULAR HGB CONC 34.7 g/dL (32.0-36.0); MEAN CORPUSCULAR VOLUME 100 fl (80-97); MONOCYTES % (AUTO) 10.6 % (3-13); PLATELET COUNT 204 10^3/uL (150-450); RED BLOOD COUNT 4.31 10^6/uL (3.72-5.28); RED CELL DISTRIBUTION WIDTH 14.2 % (11.5-14.0); SEGMENTED NEUTROPHILS % (AUTO) 55.3 % (42-78); TOTAL CELLS COUNTED % (AUTO) 100 %; WHITE BLOOD COUNT 5.5 10^3/uL (4.0-10.5)
[2019-03-23 02:18] LABS: URINE AMPHETAMINES SCREEN NEGATIVE; URINE BARBITURATES SCREEN NEGATIVE; URINE BENZODIAZEPINES SCREEN NEGATIVE; URINE COCAINE SCREEN NEGATIVE; URINE MARIJUANA (THC) SCREEN UNCONFIRMED POSITIVE; URINE METHADONE SCREEN NEGATIVE; URINE PHENCYCLIDINE SCREEN NEGATIVE
[2019-03-23 02:27] LABS: ALBUMIN 4.2 g/dL (3.5-5.0); ALCOHOL 121 mg/dL (NONE DETECTED); ALKALINE PHOSPHATASE 91 U/L (38-126); ANION GAP 12 (5-19); ASPARTATE AMINO TRANSFERASE 35 U/L (14-36); BILIRUBIN,DIRECT 0.1 mg/dL (0.0-0.4); BILIRUBIN,TOTAL 0.4 mg/dL (0.2-1.3); BLOOD UREA NITROGEN 8 mg/dL (7-20); CALCIUM 9.4 mg/dL (8.4-10.2); CARBON DIOXIDE 21 mmol/L (22-30); CHLORIDE 105 mmol/L (98-107); GLUCOSE 95 mg/dL (75-110); POTASSIUM 4.2 mmol/L (3.6-5.0); TOTAL PROTEIN 7.1 g/dL (6.3-8.2)
[2019-03-23 02:33] LABS: ACETAMINOPHEN < 10 ug/mL (10-30); SALICYLATE < 1.0 mg/dL (2.0-20.0)
[2019-03-23] MEDS ORDERED: DIPHENHYDRAMINE HCL 50 MG/ML VIAL IM ONE (03:49)
[2019-03-23] MEDS ORDERED: PROMETHAZINE HCL INJ 25 MG/1 ML VIAL IM ONE (03:49)
--- NOTE | 2019-03-23 07:41 | EKG REPORT ---
SEVERITY:- NORMAL ECG - SINUS RHYTHM : Confirmed by: Ritchie Stuart MD 23-Mar-2019 07:40:17
--- NOTE | 2019-03-23 11:08 | PSYCHOLOGICAL NOTE ---
Psych Note - Psych Note Date seen by psych provider: 03/23/19 Time seen by psych provider: 07:50 Psych Note: Reason for consult: SI and ETOH Patient presented to ED via EMS for endorsing suicidal ideation and ETOH intoxication. Patient states primary concern is my nerves. Patient frequently states, I just need something for my nerves to calm me down because my nerves are bad. Patient denies suicidal and homicidal ideation. Patient denies w anting to . Patient reported a little bit of suicidal ideation last night, however continued that I aint gonna do nothing. Patient reports family related stressors in the home. There is conflict between son and . Patient reports added stress because mom is not doing good. Per patient report, patient scheduled 3 appointments with [facility], but had to cancel due to transportation issues. Patient reports no one in the home has a bulk tank driver's license. Patient received treatment at [facility] for 3.5 days. Patient is requesting the meds [facility] gave me. Patient reports continued use of alcohol to cope with anxiety. Patient denies a need for inpatient treatment. Patient verbalized a belief that outpatient treatment would be beneficial, however expressed concerns with transportation. Patient is alert and oriented to person, place, time and circumstance. Mood is normal with congruent affect as evidenced by appropriate engagement with clinician. Patient denies suicidal and homicidal ideation. Delusions are absent and behavior is congruent with an intact reality based presentation (i.e. organized and linear thought processes). Patient denies auditory and visual hallucinations. There is no observed behavior that suggests patient is responding to internal stimuli. Eye contact is fair. Conversational speech is within normal limits. Intellectual ability appears to be within average range. Attention and concentration are poor. Insight, judgment, and impulse control are poor. DSM Diagnosis: Alcohol Use Disorder Anxiety Relational Problem Not Otherwise Specified Medication recommendations per [facility] contracted psychiatrist Dr. Sherif TORRES is as follows: Buspar 10MG, twice per day. Impression/Plan: Patient is cleared from acute psychiatric services. Patient does not meet IVC criteria per [place] GS 122C. Patient denies auditory and visual hallucinations. Patient denies current suicidal and homicidal ideations. Medication recommendations have been provided. It is recommended that patient not receive Ativan as it is contraindicated for treatment. Patient has a history of ED visits related to alcohol intoxication and SI, and patient is prescribed Ativan. Patient is not requesting treatment for increased alcohol use. Patient denies need for treatment. Patient only requests medication management seemingly through a benzodiazepine type medication. It is recommended patient that patient follow up with [facility] with medication management, and mental health services to address anxiety and alcohol use related concerns. Dr. Hernandez was consulted on the care and management of this patient; attending physician is in agreement with recommendations and disposition.
--- NOTE | 2019-03-23 12:36 | ER Document Report ---
Doctor's Note Notes: 03/23/19 12:31 Patient is an afebrile, well-hydrated, 58-year-old female with history of alcohol abuse and depression who presents for suicidal ideation and depressed mood. Patient states that she was drinking beer last night and her and stepson were in an argument that she got in the middle of. Patient states that it made her very upset causing her to feel helpless and hopeless and not wanting to 'go on anymore.' Her medicine at home, Seroquel, was not helping so she came here for evaluation. She does have suicidal ideation, but has never had a plan. She otherwise has been able to eat and drink without difficulty. She is urinating normally. No visual or auditory hallucinations. Patient has had an otherwise unremarkable work-up and has been cleared by our mental health team. They would like BuSpar 10 mg twice daily added and I will send her with a short course of hydroxyzine to help with anxiety. Patient otherwise is feeling better than she was last night. She has no other concerns or complaints. Vitals are acceptable without significant tachycardia, tachypnea, or hypoxia. PE is otherw ise unremarkable. Pt is able to make clear decisions for herself, ambulate without any instability, and is otherwise clinically sober at this time. Pt feels safe to go home. No further work up warranted. Pt has been provided with resources and recommended f/u. Denies any headache, fever, neck pain, URI, sore throat, chest pain, palpitations, syncope, cough, shortness of breath, wheeze, dyspnea, abdominal pain, nausea/vomiting/diarrhea, urinary retention, dysuria, hematuria, or rash. Low suspicion for any sepsis, endocarditis, acute intracranial pathology, meningitis, fracture, acute abdomen, acute withdrawal, or other systemic infection at this time. Patient is aware that this condition can change from initial presentation and needs to monitor symptoms closely for any acute changes. Conservative measures otherwise for symptoms. Recheck with your PCM in 3-5 days or as needed otherwise. Return to the ED with any worsening/concerning symptoms otherwise as reviewed discharge. Patient is in agreement. Brief PE: General: A&Ox4. Answers questions appropriately. Appears well overall. Heart: RRR Lungs: CTAB Psych: normal Discharge - Discharge Clinical Impression: Suicidal ideations, Alcohol abuse Condition: Stable Disposition: HOME, SELF-CARE Additional Instructions: You have been evaluated by both medical and behavioral teams and have been deemed appropriate for discharge. Medication recommendations have been provided. You have been provided with a community mental health resource list as well as a community resource list for substance abuse treatment. You are highly encouraged to follow up with one of the resources provided to you to address mental health and alcohol use concerns. You have been provided with the contact information for mobile crisis, as needed. DEPRESSION: Your evaluation reveals that you have mental depression. While symptoms may be vague, they often include disturbance of sleep, fatigue, loss of appetite, and general loss of interest in life. While depression may be a side effect of drugs, or a reaction to a major change in your life, many cases have no known cause. If depression is acute, and related to a major loss in your life, you can expect it to clear completely with time. If you have been depressed a long time, are prone to repeated bouts of depression or low mood, or have been thinking of suicide, get help. Depression can be treated with anti-depressant medication and counselling. Long-term depression will often take a few weeks to clear, even with appropriate medication. Follow-up care is important. SUICIDAL IDEATION: Suicidal ideation is a common medical term for thoughts about suicide, which may be as detailed as a formulated plan, without the suicidal act itself. Although most people who undergo suicidal ideation do not commit suicide, some go on to make suicide attempts. The range of suicidal ideation varies greatly from fleeting to detailed planning, role playing, and unsuccessful attempts. While thoughts about suicide are common, most people do not carry out serious actions to commit suicide. Based upon your evaluation and discussion with you, we do not believe you are currently at risk to act upon your thoughts of suicide. You have agreed to return to the Emergency Department, at any time, if you feel inclined to act upon your suicidal thoughts. ACUTE ALCOHOL INTOXICATION and ALCOHOL ABUSE: You can from drinking a large amount of alcohol rapidly! Further, there's the risk of falls, traffic accidents, and fights. A high portion (about 50 percent) of the serious injuries seen in hospital emergency rooms are caused by alcohol. Alcohol overdosage is usually due to an underlying emotional or psychiatric problem. You may benefit from counselling. If "binge" drinking is an ongoing problem for you, or if you drink ANY AMOUNT of alcohol EVERY day, you most likely have a tendency to alcoholism. You should avoid alcohol totally. We can refer you for treatment. Persons with alcohol problems are often also prone to other addictions -- you should discuss any use of medications or drugs with the doctor. You should be watched at home for the next several hours by someone who has not been drinking. Get extra fluids for the next 24 hours. Call the doctor if there is repeated vomiting, increasing headache, decreasing level of alertness, or any other worsening. CHRONIC ALCOHOLISM and ALCOHOL ABUSE: Your evaluation reveals evidence of chronic alcoholism, an addiction to alcohol. The tendency to alcoholism may be inherited. Chronic use of alcohol weakens muscles, causes fatty deposits in the liver, damages the stomach, makes you more prone to infections, and can cause defects in unborn children. In the long run, brain atrophy and cirrhosis of the liver result. You are also at greater risk for certain types of cancer, such as cancer of the mouth, throat, stomach, and liver. Counselling services are available to help you. In-hospital treatment programs often help. Support groups such as Alcoholics Anonymous can be very useful in beating this addiction. Your physician can make a referral for you. As alcoholics often are prone to other addictions, you should discuss your use of any other medications with the doctor. ALCOHOL WITHDRAWAL: Your symptoms are caused by alcohol withdrawal. After a period of frequent drinking, the brain and body are changed by the alcohol. When you quit or reduce your drinking, the nervous system becomes unstable. Withdrawal symptoms can start a few hours after your last drink, but sometimes don't begin until a couple of days later. Symptoms can include shakiness, sweating, insomnia, nausea, vomiting, fearfulness, hallucinations, and seizures. In addition to the acute effects of alcohol withdrawal, we often have to deal with the medical effects of alcoholism. These problems often include dehydration, stomach irritation, intestinal bleeding, low blood sugar, liver disease, and pancreas inflammation. Treatment for alcohol withdrawal includes mild sedatives, vitamins, and fluids. You need to be with someone who can help if symptoms become severe. Many patients can withdraw at home. Admission to the hospital or a detox facility may be necessary if withdrawal symptoms are severe and uncontrollable. Abstaining from alcohol is the only effective long-term treatment. If you start drinking again, you will not be able to control yourself after the first drink. Treatment programs are available. In addition, many alcoholics benefit from Alcoholics Anonymous or other support groups available through your counselor or anabaptist salon sales consultant. FOLLOW-UP CARE: If you have been referred to a physician for follow-up care, call the physicians office for an appointment as you were instructed or within the next two days. If you experience worsening or a significant change in your symptoms, notify the physician immediately or return to the Emergency Department at any time for re-evaluation. Maintain adequate fluid and food intake Healthy diet tylenol/motrin if needed Monitor for any worsening symptoms Avoid drug/alcohol use Stop smoking Make sure you are staying hydrated enough to urinate and have normal BM's Recheck with your PCM in 3-5 days or as needed Schedule appointment with counseling or go to the [facility] facility* Return to the ED with any worsening symptoms and/or development of fever, headache, changes in behavior/mentation/vision/speech, chest pain, palpitations, syncope, shortness of breath, trouble breathing, abdominal pain, n/v/d, blood in stool/urine, loss of control of bowel/bladder, urinary retention, muscle weakness/paralysis, saddle anesthesia, numbness/tingling, suicidal/homicidal ideations, visual/auditory hallucinations, or other worsening symptoms that are concerning to you. Prescriptions: Hydroxyzine Pamoate [Vistaril 25 mg Capsule] 25 mg PO QHS #6 capsule Buspirone HCl [Buspar 10 mg Tablet] 10 mg PO BID #30 tablet Forms: Elevated Blood Pressure, Smoking Cessation Education Referrals: [facility] [Outside] - Follow up as needed AYDEE LASSITER PA-C [Primary Care Provider] - Follow up as needed
[2019-03-23 12:53] VITALS: BP 127/72
== END 2019-03-23 12:54 | disposition home or self-care (01) ==
LOC: ER 23:58
DX: R45.851 Suicidal ideations (principal); F10.10 Alcohol abuse, uncomplicated; F32.9 Major depressive disorder, single episode, unspecified; F17.200 Nicotine dependence, unspecified, uncomplicated; Z88.0 Allergy status to penicillin
CPT/HCPCS: 93005; 36415; 80307 ×4; 85025; 80053; 81001; 93010; J1200; J2550; 96372; 99285

== ENCOUNTER 2019-04-09 22:08 | Emergency (ER) | payer SELFPAY ==
--- NOTE | 2019-04-09 23:59 | ER Document Report ---
ED Substance Abuse / Acc. OD - General Chief Complaint: ETOH Abuse Stated Complaint: ETOH/DETOX Time Seen by Provider: 04/09/19 23:29 Primary Care Provider: AYDEE LASSITER PA-C [Primary Care Provider] - Follow up as needed Information source: Patient Notes: 58-year-old woman presents to the emergency department with the history of alcohol abuse. Emir she admits that she has been drinking heavily for the past few days. Apparently has gone to detox in the past, has failed to follow- [facility] with [facility] and emir is requesting help. She denies being suicidal, however admits to being depressed. She also expresses a displeasure with her current living situation and her relationship with her . TRAVEL OUTSIDE OF THE [place] IN LAST 30 DAYS: No - HPI Patient complains to provider of: Alcohol abuse Severity: Moderate - Related Data Allergies/Adverse Reactions: Penicillins Allergy (Unknown, Verified 02/25/19 23:43) Past Medical History - Social History Smoking Status: Current Every Day Smoker Chew tobacco use (# tins/day): No Frequency of alcohol use: Heavy Drug Abuse: Marijuana, Prescription drugs Family History: CAD, DM, Hyperlipidemia, Hypertension. denies: Arthritis, COPD, CVA, Malignancy, Thyroid Disfunction Patient has suicidal ideation: No Patient has homicidal ideation: No Renal/ Medical History: Denies: Hx Peritoneal Dialysis Psychiatric Medical History: Reports: Hx Depression - Immunizations Immunizations up to date: Yes Hx Diphtheria, Pertussis, Tetanus Vaccination: Yes - 08/13/2017 Review of Systems - Review of Systems Notes: Constitutional: Negative for fever. HENT: Negative for sore throat. Eyes: Negative for visual changes. Cardiovascular: Negative for chest pain. Respiratory: Negative for shortness of breath. Gastrointestinal: Negative for abdominal pain, vomiting or diarrhea. Genitourinary: Negative for dysuria. Musculoskeletal: Negative for back pain. Skin: Negative for rash. Psychiatric: Denies SI or HI, no hallucinations. Neurological: Negative for headaches, weakness or numbness. 10 point ROS negative except as marked above and in HPI. Physical Exam - Vital signs Vitals: Temp Pulse Resp BP Pulse Ox 97.7 F 97 17 116/70 96 04/09/19 22:17 04/09/19 22:17 04/09/19 22:17 04/09/19 22:17 04/09/19 22:17 - Notes Notes: Reviewed vital signs and nursing note as charted by RN. CONSTITUTIONAL: Thin alert and responsive female in no acute distress HEAD: Normocephalic; atraumatic; No swelling EYES: PERRL; Conjunctivae clear, no drainage; EOMI ENT: External ears without lesionsPharynx clear NECK: Supple, no cervical lymphadenopathy, no masses CARD: Regular rate and rhythm; no murmurs, no rubs, no gallops RESP: Respiratory rate and effort are normal. flaring, no accessory muscle use. ABD/GI: Normal bowel sounds; non-distended; soft, non-tender, no rebound, no guarding EXT: no edema SKIN: Normal, dry, no lesions Psychiatric: Answers questions appropriately, denies homicidal or suicidal ideation, denies hallucinations, good judgment NEURO: No facial asymmetry; Moves all extremities equally; Motor and sensory function intact Course - Re-evaluation Re-evalutation: 04/11/19 04:33 Patient noted that she wanted to leave the hospital on the date if she signed out AMA. There were no beds for detox and at that time her laboratory results have not resulted completely. She is not suicidal or homicidal and states that she could get a ride back home. She lived in [facility] and I think minimum risks were involved in her signing out against my advice. - Vital Signs Vital signs: Temp Pulse Resp BP Pulse Ox 97.7 F 97 16 116/76 96 04/09/19 22:17 04/09/19 22:17 04/10/19 01:01 04/10/19 01:00 04/10/19 01:01 - Laboratory Result Diagrams: 04/10/19 00:04 04/10/19 00:04 Laboratory results interpreted by me: 04/10/19 00:04 MCV 100 H MCH 34.1 H I have reviewed laboratory data and used this information for the treatment decisions regarding the patient. Discharge - Discharge Clinical Impression: Alcohol abuse, Marijuana use Condition: Good Disposition: AGAINST MEDICAL ADVICE Referrals: AYDEE LASSITER PA-C [Primary Care Provider] - Follow up as needed
[2019-04-10 00:15] LABS: ABSOLUTE BASOPHILS # (AUTO) 0.1 10^3/uL (0.0-0.2); ABSOLUTE EOSINOPHILS # (AUTO) 0.1 10^3/uL (0.0-0.6); ABSOLUTE LYMPHOCYTES (AUTO) 1.8 10^3/uL (0.5-4.7); ABSOLUTE MONOCYTES (AUTO) 0.3 10^3/uL (0.1-1.4); ABSOLUTE NEUT (AUTO) 2.4 10^3/uL (1.7-8.2); BASOPHILS % (AUTO) 1.3 % (0-2); HEMATOCRIT 43.7 % (36.0-47.0); HEMOGLOBIN 14.9 g/dL (12.0-15.5); MEAN CORPUSCULAR HEMOGLOBIN 34.1 pg (27.0-33.4); MEAN CORPUSCULAR VOLUME 100 fl (80-97); MONOCYTES % (AUTO) 7.1 % (3-13); PLATELET COUNT 286 10^3/uL (150-450); RED BLOOD COUNT 4.36 10^6/uL (3.72-5.28); RED CELL DISTRIBUTION WIDTH 13.9 % (11.5-14.0); SEGMENTED NEUTROPHILS % (AUTO) 50.6 % (42-78); TOTAL CELLS COUNTED % (AUTO) 100 %; WHITE BLOOD COUNT 4.7 10^3/uL (4.0-10.5)
[2019-04-10 00:42] LABS: ALBUMIN 4.4 g/dL (3.5-5.0); ALCOHOL 185 mg/dL (NONE DETECTED); ALKALINE PHOSPHATASE 93 U/L (38-126); ANION GAP 9 (5-19); ASPARTATE AMINO TRANSFERASE 30 U/L (14-36); BILIRUBIN,TOTAL 0.4 mg/dL (0.2-1.3); BLOOD UREA NITROGEN 11 mg/dL (7-20); CALCIUM 9.6 mg/dL (8.4-10.2); CARBON DIOXIDE 26 mmol/L (22-30); CHLORIDE 107 mmol/L (98-107); GLUCOSE 76 mg/dL (75-110); POTASSIUM 4.2 mmol/L (3.6-5.0); TOTAL PROTEIN 7.5 g/dL (6.3-8.2)
[2019-04-10 00:43] LABS: URINE AMPHETAMINES SCREEN NEGATIVE; URINE BARBITURATES SCREEN NEGATIVE; URINE BENZODIAZEPINES SCREEN NEGATIVE; URINE COCAINE SCREEN NEGATIVE; URINE MARIJUANA (THC) SCREEN UNCONFIRMED POSITIVE; URINE METHADONE SCREEN NEGATIVE; URINE PHENCYCLIDINE SCREEN NEGATIVE
[2019-04-10 01:18] VITALS: BP 116/76
== END 2019-04-10 01:29 | disposition left against medical advice (07) ==
LOC: ER 22:08
DX: F10.10 Alcohol abuse, uncomplicated (principal); F12.90 Cannabis use, unspecified, uncomplicated; F17.200 Nicotine dependence, unspecified, uncomplicated; Z88.0 Allergy status to penicillin
CPT/HCPCS: 36415; 80053; 80307; 85025

== ENCOUNTER 2019-09-30 02:10 | Emergency (ER) | payer SELFPAY ==
--- NOTE | 2019-09-30 03:01 | ER Document Report ---
Entered by LORA HERNANDEZ SCRIBE 09/30/19 0253 Acting as scribe for:DANIEL VASQUEZ DO ED Psych Disorder / Suicide - General Chief Complaint: Suicidal Ideation Stated Complaint: SUICIDAL IDEATION Time Seen by Provider: 09/30/19 02:28 Primary Care Provider: AYDEE LASSITER PA-C [Primary Care Provider] - Follow up as needed Mode of Arrival: Medic Information source: Patient Notes: This 59 year old female patient with a history of ETOH abuse, anxiety, and depression brought in by EMS presents to the ED today with complaints of suicidal ideation. Patient states that she called EMS because she has been "drinking too much". She states that she drank a gallon of "[place] [employer]" today. She reports suicidal ideation, stating that "I wish I would " and that she has been depressed due to the ongoing COVID-19 pandemic and being unemployed. She states that she lives with her and that he sometimes drinks with her. She admits that she has been treated here and at [facility] in the past for suicidal ideation/depression and that the medications that she received for her depression "do me no good," so she has stopped taking them. She is requesting "something for my nerves" so that she can sleep. Reports use of tobacco and marijuana, but denies any other recreational drugs. Denies fever, cough, or homicidal ideation. TRAVEL OUTSIDE OF THE [place] IN LAST 30 DAYS: No - Related Data Allergies/Adverse Reactions: Penicillins Allergy (Unknown, Verified 09/30/19 02:49) Past Medical History - General Information source: Patient, [facility], [facility] Records - Social History Smoking Status: Current Every Day Smoker Cigarette use (# per day): Yes Chew tobacco use (# tins/day): No Smoking Education Provided: No Frequency of alcohol use: Heavy Drug Abuse: Marijuana Lives with: Spouse/Significant other Family History: Reviewed & Not Pertinent, CAD, DM, Hyperlipidemia, Hypertension Patient has suicidal ideation: Yes Patient has homicidal ideation: No Malignancy Medical History: Reports: Other - Hx Throat Cancer, resolved with radiation Psychiatric Medical History: Reports: Hx Anxiety, Hx Depression Past Surgical History: Reports: Hx Tubal Ligation - Immunizations Immunizations up to date: Yes Hx Diphtheria, Pertussis, Tetanus Vaccination: Yes - 08/13/2017 Review of Systems - Review of Systems Constitutional: See HPI. denies: Fever EENT: No symptoms reported Cardiovascular: No symptoms reported Respiratory: See HPI. denies: Cough Gastrointestinal: No symptoms reported Genitourinary: No symptoms reported Female Genitourinary: No symptoms reported Musculoskeletal: No symptoms reported Skin: No symptoms reported Hematologic/Lymphatic: No symptoms reported Neurological/Psychological: See HPI, Depression, Suicidal ideation. denies: Homicidal ideation -: Yes All other systems reviewed and negative Physical Exam - Vital signs Vitals: Temp Pulse Resp BP Pulse Ox 97.5 F 95 20 134/83 H 99 09/30/19 02:25 09/30/19 02:25 09/30/19 02:25 09/30/19 02:25 09/30/19 02:25 - General General appearance: Alert, Anxious, Other - Ambulates with unsteady gait and mild assistance. Appears shaky In distress: None - HEENT Head: Normocephalic, Atraumatic Eyes: Normal Pupils: PERRL - Respiratory Respiratory status: No respiratory distress Chest status: Nontender Breath sounds: Normal Chest palpation: Normal - Cardiovascular Rhythm: Regular Heart sounds: Normal auscultation Murmur: No Friction rub: No Gallop: None auscultated - Abdominal Inspection: Normal Distension: No distension Bowel sounds: Normal Tenderness: Nontender - Abdomen soft Organomegaly: No organomegaly - Back Back: Normal, Nontender - Extremities General upper extremity: Normal inspection General lower extremity: Normal inspection. No: Edema - Neurological Neuro grossly intact: Yes Orientation: AAOx4 Kim Coma Scale Eye Opening: Spontaneous [place] Coma Scale Verbal: Oriented [place] Coma Scale Motor: Obeys Commands [place] Coma Scale Total: 15 - Psychological Associated symptoms: Anxious, Tearful, Other - Suicidal without specific plan - Skin Skin Temperature: Warm Skin Moisture: Dry Skin Color: Normal Course - Vital Signs Vital signs: Temp Pulse Resp BP Pulse Ox 97.9 F 95 20 134/83 H 99 09/30/19 02:28 09/30/19 02:25 09/30/19 02:25 09/30/19 02:25 09/30/19 02:25 - Laboratory Result Diagrams: 09/30/19 03:20 09/30/19 03:20 Laboratory results interpreted by me: 09/30/19 09/30/19 09/30/19 03:00 03:20 03:20 Hgb 16.9 H Hct 48.9 H MCV 98 H MCH 33.7 H Chloride 108 H AST 40 H Alkaline Phosphatase 130 H Urine Protein 100 H Urine Blood SMALL H - EKG Interpretation by Me EKG shows normal: Sinus rhythm Rate: Normal Rhythm: NSR - NSR R [place] no st elevation or depression my interpretation. Discharge - Discharge Clinical Impression: Depression Qualifiers: Depression Type: unspecified Qualified Code(s): F32.9 - Major depressive disorder, single episode, unspecified Acute alcohol intoxication Qualifiers: Complication of substance-induced condition: uncomplicated Qualified Code(s): F10.920 - Alcohol use, unspecified with intoxication, uncomplicated Condition: Good Disposition: PSYCH HOSP/UNIT Referrals: AYDEE LASSITER PA-C [Primary Care Provider] - Follow up as needed I personally performed the services described in the documentation, reviewed and edited the documentation which was dictated to the scribe in my presence, and it accurately records my words and actions.
[2019-09-30 03:29] LABS: ABSOLUTE EOSINOPHILS # (AUTO) 0.1 10^3/uL (0.0-0.6); ABSOLUTE LYMPHOCYTES (AUTO) 1.4 10^3/uL (0.5-4.7); ABSOLUTE MONOCYTES (AUTO) 0.3 10^3/uL (0.1-1.4); ABSOLUTE NEUT (AUTO) 3.9 10^3/uL (1.7-8.2); BASOPHILS % (AUTO) 0.8 % (0-2); EOSINOPHILS % (AUTO) 1.3 % (0-6); HEMATOCRIT 48.9 % (36.0-47.0); HEMOGLOBIN 16.9 g/dL (12.0-15.5); LYMPHOCYTES % (AUTO) 24.5 % (13-45); MEAN CORPUSCULAR HEMOGLOBIN 33.7 pg (27.0-33.4); MEAN CORPUSCULAR HGB CONC 34.5 g/dL (32.0-36.0); MEAN CORPUSCULAR VOLUME 98 fl (80-97); MONOCYTES % (AUTO) 5.9 % (3-13); PLATELET COUNT 261 10^3/uL (150-450); RED CELL DISTRIBUTION WIDTH 13.8 % (11.5-14.0); SEGMENTED NEUTROPHILS % (AUTO) 67.5 % (42-78); TOTAL CELLS COUNTED % (AUTO) 100 %; WHITE BLOOD COUNT 5.8 10^3/uL (4.0-10.5)
[2019-09-30 03:36] LABS: INTERNATIONAL RATION (INR) 0.89
[2019-09-30 03:48] LABS: ALBUMIN 4.6 g/dL (3.5-5.0); ALCOHOL 240 mg/dL (NONE DETECTED); ALKALINE PHOSPHATASE 130 U/L (38-126); ANION GAP 11 (5-19); ASPARTATE AMINO TRANSFERASE 40 U/L (14-36); BILIRUBIN,TOTAL 0.3 mg/dL (0.2-1.3); BLOOD UREA NITROGEN 10 mg/dL (7-20); CALCIUM 9.4 mg/dL (8.4-10.2); CARBON DIOXIDE 25 mmol/L (22-30); CHLORIDE 108 mmol/L (98-107); GLUCOSE 92 mg/dL (75-110); POTASSIUM 4.3 mmol/L (3.6-5.0); TOTAL PROTEIN 7.4 g/dL (6.3-8.2)
[2019-09-30 04:31] LABS: APPEARANCE,URINE CLEAR; BILIRUBIN,URINE NEGATIVE (NEGATIVE); COLOR,URINE YELLOW; GLUCOSE, URINE NEGATIVE (NEGATIVE); KETONES,URINE NEGATIVE (NEGATIVE); LEUKOCYTE ESTERASE,URINE NEGATIVE (NEGATIVE); NITRITE,URINE NEGATIVE (NEGATIVE); PROTEIN,URINE 100 mg/dL (NEGATIVE); URINE SPECIFIC GRAVITY 1.009; UROBILINOGEN,URINE NEGATIVE mg/dL (<2.0)
[2019-09-30 07:41] LABS: URINE AMPHETAMINES SCREEN NEGATIVE; URINE BARBITURATES SCREEN NEGATIVE; URINE BENZODIAZEPINES SCREEN NEGATIVE; URINE COCAINE SCREEN NEGATIVE; URINE MARIJUANA (THC) SCREEN UNCONFIRMED POSITIVE; URINE METHADONE SCREEN NEGATIVE; URINE PHENCYCLIDINE SCREEN NEGATIVE
--- NOTE | 2019-09-30 07:42 | EKG REPORT ---
SEVERITY:- ABNORMAL ECG - SINUS RHYTHM BORDERLINE RIGHT AXIS DEVIATION ABNRM R PROG, CONSIDER ASMI OR LEAD PLACEMENT BORDERLINE PROLONGED QT INTERVAL : Confirmed by: Ritchie Stuart MD 30-Sep-2019 07:40:37
[2019-09-30] MEDS ORDERED: ACETAMINOPHEN 325 MG TABLET PO ONE (08:04)
[2019-09-30 18:00] VITALS: BP 124/78
--- NOTE | 2019-09-30 20:06 | PSYCHOLOGICAL NOTE ---
Psych Note - Psych Note Date seen by psych provider: 09/30/19 Time seen by psych provider: 15:36 - [id number] Psych Note: Presenting Problem: Patient is a 59 year old female who [facility] insurance specialist hours via EMS for suicidal ideation and alcohol intoxication. Patient identified "I had too much to drink last night." She further stated "I have a lot of shit going on." When asked to elaborate she reported "my neighbors were flirting with me, the woman is 30 and her is 50, first she tried flirting, then he tried flirting, then the woman took her clothes off, they wanted to do shit last night and I was not having it." Patient further mentioned stress with Light-virus and being out of work. Patient stated she went to [facility] twice, was put on medication for depression and anxiety/nerves, the medication "made me feel funny so I quit taking it." Patient admitted to drinking a gallon of [place] [employer] amongst 4 people (patient, her and the neighbor couple) last night. Her Serum Alcohol Level was 240 upon arrival to the ED. Uds also positive for Cannabis. She reported she drinks 3 days out of a week. She denied withdrawal symptoms and this clinician did not observe any sweating, shaking, hot/cold flashes. Inquired if patient was interested in voluntary detoxification and she declined. She denied current suicidal ideation, admitted "I talk about it when I am drunk but have no guts and could never hurt myself." Patient reported her lost his phone last night, he doesn't have a car but their male friend has already called in to the hospital and she has his number in her cell phone. Patient has been seen in the [facility] previously/numerous times for similar etiology. Each time she was provided information or offered to be linked to [facility]. She would decline and had agreed to follow up with [facility]. Patient was alert and oriented to self, person, place, time and situation. Mood was euthymic with congruent affect. She denied current SI/HI, admitted to "talking about it when drunk" but said she could never hurt herself. Patient did not appear to be responding to internal stimuli as evidenced by fair eye contact and answering questions appropriately when addressed. Conversational speech was within normal limits for rate, tone and prosody. Intellectual abilities are estimated to be average. Thought process were linear and organized. Insight, judgment and impulse control were fair as evidenced by saying she needs to walk in to [facility] Thursday morning. Collateral: Contacted friend Karthik who is being utilized for transportation. He stated "I don't know what happened they are just a couple drunks I used to be their neighbor, I guess her lost his phone last night and he's been running around trying to find her." Interventions: Used open ended questioning to obtain information regarding current crisis situation and past, as well as to get patient to elaborate. Challenged and confronted patient about local linkage and supports since this clinician has seen patient in the [facility] previously. Encouraged patient to do as she suggested and walk in or call [facility] Thursday (10/03/2019) morning. Provided psychoeducation on the importance of ongoing medication management and group and/or individual therapy. Diagnosis: Alcohol Intoxication with Use Disorder, Moderate Suicidal Ideation when intoxicated (as evidenced by similar etiology from multiple previous [facility] visits) Cannabis Use Disorder Medication recommendations: None at this time Impression/Plan: Patient is cleared from acute psychiatric services. She denied current SI, admitted to previous statements when under the influence and denied any kind of actions or attempts. She had time to sober up from alcohol intoxication. Coordinated with male friend for transportation. Offered linkage to voluntary detox which patient declined. Patient mentioned going to [facility] as a walk in Thursday (10/03/2019) and was encouraged to follow through. Patient was provided the outpatient MH resource sheet which highlighted both M[facility] numbers and documented walk in to [facility] Thursday (09/23/2019) morning. Consulted with Dr. Hernandez regarding the management and care of patient. ED Physician in agreement with recommendations.
== END 2019-09-30 19:03 | disposition home or self-care (01) ==
LOC: ER 02:10
DX: R45.851 Suicidal ideations (principal); F32.9 Major depressive disorder, single episode, unspecified; F10.920 Alcohol use, unspecified with intoxication, uncomplicated; F17.210 Nicotine dependence, cigarettes, uncomplicated
CPT/HCPCS: 36415; 80053; 80307; 81001; 84443; 85025; 85610; 93005; 93010; 99285

== ENCOUNTER 2019-12-06 01:24 | Emergency (ER) | payer SELFPAY ==
--- NOTE | 2019-12-06 02:39 | RADIOLOGY REPORT (SQ) ---
CT head without contrast on 12/06/2019 at 2:12 AM CLINICAL INDICATION: Worst headache ever TECHNIQUE: Multiple axial images are obtained throughout the head without the administration of contrast. This exam was performed according to our departmental dose-optimization program, which includes automated exposure control, adjustment of the mA and/or kV according to patient size and/or use of iterative reconstruction technique. Total DLP is 1043.77 mGy*cm. COMPARISON: None FINDINGS: There is no hydrocephalus. There is no CT evidence of acute infarct. There is no hemorrhage. There are no abnormal extra-axial fluid collections. There is no mass, mass effect or midline shift. No bony abnormality is noted. IMPRESSION: No acute intracranial abnormality.
--- NOTE | 2019-12-06 02:40 | RADIOLOGY REPORT (SQ) ---
CT cervical spine without contrast on 12/06/2019 at 2:14 AM CLINICAL INDICATION: Worst headache ever TECHNIQUE: Multiple axial images are obtained throughout the cervical spine without the administration of contrast. Sagittal and coronal reformatted images are also performed and reviewed. This exam was performed according to our departmental dose-optimization program, which includes automated exposure control, adjustment of the mA and/or kV according to patient size and/or use of iterative reconstruction technique. Total DLP is 197.6 mGy*cm. COMPARISON: None FINDINGS: Reformatted images reveal normal alignment of the cervical spine. Degenerative disc disease is noted in the lower cervical spine. Degenerative facet disease is noted bilaterally worse in the mid to lower cervical spine. There is no prevertebral soft tissue swelling. There are no acute fracture lines. No definite disc herniation is noted. IMPRESSION: Degenerative changes with no acute abnormality.
--- NOTE | 2019-12-06 02:57 | ER Document Report ---
ED Medical Screen (RME) - General Chief Complaint: Neck Problem Stated Complaint: NECK PAIN Time Seen by Provider: 12/06/19 02:08 Primary Care Provider: AYDEE LASSITER PA-C [Primary Care Provider] - Follow up as needed Mode of Arrival: Ambulatory Information source: Patient Notes: 59-year-old female patient presents the emergency department with acute onset neck and head pain that started at about 1030 last night which would be about 4 hours ago. She denies any history of headaches, states she has never had pain like this before. She is hypotensive when she checks into the triage desk although she is alert, oriented and has no symptoms of hypotension. She is demanding pain medication. I placed orders for head and neck CTs and took her immediately to CT. I have greeted and performed a rapid initial assessment of this patient. A comprehensive ED assessment and evaluation of the patient, analysis of test results and completion of the medical decision making process will be conducted by additional ED providers. I have specifically instructed the patient or family members with the patient to immediately return to any nursing staff should anything change in the patient's condition or with their chief complaint. TRAVEL OUTSIDE OF THE [place] IN LAST 30 DAYS: No - Related Data Allergies/Adverse Reactions: Penicillins Allergy (Unknown, Verified 09/30/19 02:49) Past Medical History Renal/ Medical History: Denies: Hx Peritoneal Dialysis Psychiatric Medical History: Reports: Hx Anxiety, Hx Depression Past Surgical History: Reports: Hx Tubal Ligation - Immunizations Immunizations up to date: Yes Hx Diphtheria, Pertussis, Tetanus Vaccination: Yes - 08/13/2017 Physical Exam - Vital signs Vitals: Temp Pulse Resp BP Pulse Ox 98.7 F 97 16 89/67 L 100 12/06/19 01:35 12/06/19 01:35 12/06/19 01:35 12/06/19 01:35 12/06/19 01:35 Course - Vital Signs Vital signs: Temp Pulse Resp BP Pulse Ox 98.7 F 97 16 89/67 L 100 12/06/19 01:35 12/06/19 01:35 12/06/19 01:35 12/06/19 01:35 12/06/19 01:35 Doctor's Discharge - Discharge Referrals: AYDEE LASSITER PA-C [Primary Care Provider] - Follow up as needed
--- NOTE | 2019-12-06 03:09 | ER Document Report ---
ED General - General Chief Complaint: Neck Problem Stated Complaint: NECK PAIN Time Seen by Provider: 12/06/19 02:08 Primary Care Provider: AYDEE LASSITER PA-C [Primary Care Provider] - Follow up as needed Mode of Arrival: Ambulatory Information source: Patient Notes: Krystal notes 59-year-old female patient presents the emergency department with acute onset neck and head pain that started at about 1030 last night which would be about 4 hours ago. She denies any history of headaches, states she has never had pain like this before. She is hypotensive when she checks into the triage desk although she is alert, oriented and has no symptoms of hypotension. She is demanding pain medication. my notes [age]-year-old female presents with acute onset of dorsal neck pain and headache that began around 2230 tonight. Patient denies any history of headaches. Patient reports she awoke from sleep and then awoke her in order to call 911 for EMS travel to [facility]. Patient had CT scan of head and neck that were negative. She reports she is never had any pain like this and says it stretches from either side of her neck pointing to her trapezial muscle to her occipital area of her head. She denies any history of CVA in the past. Please note she has had a history of psychiatric and detox and was just admitted and may here at [facility] for suicidal ideation. Patient is a smoker and smokes 1 pack/day. She denies any alcohol use tonight. She does have a history of EtOH in the past. TRAVEL OUTSIDE OF THE [place] IN LAST 30 DAYS: No - HPI Onset: Just prior to arrival Onset/Duration: Sudden, Persistent, Better Quality of pain: Achy Severity: Mild Associated symptoms: Headache Exacerbated by: Movement Relieved by: Remaining still Similar symptoms previously: No Recently seen / treated by doctor: No - Related Data Allergies/Adverse Reactions: Penicillins Allergy (Unknown, Verified 09/30/19 02:49) Past Medical History - General Information source: Patient - Social History Smoking Status: Current Every Day Smoker Cigarette use (# per day): Yes Chew tobacco use (# tins/day): No Smoking Education Provided: Yes Frequency of alcohol use: Occasional Drug Abuse: None Lives with: Family Family History: Reviewed & Not Pertinent, CAD, DM, Hyperlipidemia, Hypertension Patient has suicidal ideation: No Patient has homicidal ideation: No Renal/ Medical History: Denies: Hx Peritoneal Dialysis Psychiatric Medical History: Reports: Hx Anxiety, Hx Depression Past Surgical History: Reports: Hx Tubal Ligation - Immunizations Immunizations up to date: Yes Hx Diphtheria, Pertussis, Tetanus Vaccination: Yes - 08/13/2017 Review of Systems - Review of Systems Constitutional: No symptoms reported EENT: No symptoms reported Cardiovascular: No symptoms reported Respiratory: No symptoms reported Gastrointestinal: No symptoms reported Genitourinary: No symptoms reported Female Genitourinary: No symptoms reported Musculoskeletal: See HPI, Neck pain - Dorsally Skin: No symptoms reported Hematologic/Lymphatic: No symptoms reported Neurological/Psychological: No symptoms reported, Headaches Physical Exam - Vital signs Vitals: Temp Pulse Resp BP Pulse Ox 98.7 F 97 16 89/67 L 100 12/06/19 01:35 12/06/19 01:35 12/06/19 01:35 12/06/19 01:35 12/06/19 01:35 Interpretation: Hypotensive - General General appearance: Alert, Anxious - HEENT Head: Normocephalic - Thematic for, Atraumatic Eyes: Normal Pupils: PERRL Visual stephen normal: Yes Ears: Normal External canal: Normal Sinus: Normal Nasal: Normal Mouth/Lips: Normal Pharynx: Normal Neck: Other - Tender dorsal neck on palpation - Respiratory Respiratory status: No respiratory distress Chest status: Nontender Breath sounds: Normal Chest palpation: Normal - Cardiovascular Rhythm: Regular Heart sounds: Normal auscultation Murmur: No - Abdominal Inspection: Normal Distension: No distension Bowel sounds: Normal Tenderness: Nontender Organomegaly: No organomegaly - Rectal Hemorrhoids: Other - deferred - Genitourinary [place] exam: Other - deferred - Back Back: Normal - Extremities General upper extremity: Normal inspection General lower extremity: Normal inspection - Neurological Neuro grossly intact: Yes Cognition: Normal Orientation: AAOx4 [place] Coma Scale Eye Opening: Spontaneous [place] Coma Scale Verbal: Oriented [place] Coma Scale Motor: Obeys Commands Kim Coma Scale Total: 15 Speech: Normal Motor strength normal: LUE, RUE, LLE, RLE Sensory: Normal - Psychological Associated symptoms: Anxious - Skin Skin Temperature: Warm Skin Moisture: Dry Course - Vital Signs Vital signs: Temp Pulse Resp BP Pulse Ox 98.7 F 77 18 95/65 L 98 12/06/19 01:35 12/06/19 05:19 12/06/19 05:19 12/06/19 05:19 12/06/19 05:19 - Laboratory Laboratory results interpreted by me: 12/06/19 04:10 Urine Protein 100 H Urine Urobilinogen 2.0 H Ur Leukocyte Esterase TRACE H - EKG Interpretation by Me EKG shows normal: Sinus rhythm Rate: Normal Rhythm: NSR Discharge - Discharge Clinical Impression: Torticollis, acute Hypotension Qualifiers: Hypotension type: unspecified hypotension type Qualified Code(s): I95.9 - Hypotension, unspecified Condition: Good Disposition: HOME, SELF-CARE Additional Instructions: Follow-up with personal doctor this week; return to ER if symptoms persist or worsen; take medicines as directed ;encourage fluids ;avoid using a pillow behind her head for least 4 or 5 days. Prescriptions: Chlorzoxazone [Parafon Forte Dsc 500 Mg Tablet] 500 mg PO BID PRN 10 Days #20 tablet PRN Reason: Pain Scale Of 1 Referrals: AYDEE LASSITER PA-C [Primary Care Provider] - Follow up as needed
[2019-12-06] MEDS ORDERED: KETOROLAC TROMETHAMINE INJ/PF 30 MG/1 ML SDV IM ONE (03:46)
[2019-12-06] MEDS ORDERED: DEXAMETHASONE SOD PHOS INJ 10 MG/1 ML VIAL IM ONE (03:47)
[2019-12-06] MEDS ORDERED: METHOCARBAMOL 500 MG TABLET PO ONE (03:47)
[2019-12-06 04:35] LABS: APPEARANCE,URINE CLOUDY; BILIRUBIN,URINE NEGATIVE (NEGATIVE); COLOR,URINE DARK YELLOW; GLUCOSE, URINE NEGATIVE (NEGATIVE); KETONES,URINE NEGATIVE (NEGATIVE); LEUKOCYTE ESTERASE,URINE TRACE (NEGATIVE); NITRITE,URINE NEGATIVE (NEGATIVE); PROTEIN,URINE 100 mg/dL (NEGATIVE); URINE SPECIFIC GRAVITY 1.016
[2019-12-06 04:38] LABS: URINE AMPHETAMINES SCREEN NEGATIVE; URINE BARBITURATES SCREEN NEGATIVE; URINE BENZODIAZEPINES SCREEN NEGATIVE; URINE COCAINE SCREEN NEGATIVE; URINE METHADONE SCREEN NEGATIVE; URINE PHENCYCLIDINE SCREEN NEGATIVE
[2019-12-06 04:42] LABS: URINE MARIJUANA (THC) SCREEN UNCONFIRMED POSITIVE
[2019-12-06 05:19] VITALS: BP 95/65
--- NOTE | 2019-12-06 14:32 | EKG REPORT ---
SEVERITY:- BORDERLINE ECG - SINUS RHYTHM BORDERLINE PROLONGED QT INTERVAL : Confirmed by: Salvatore Mo MD 06-Dec-2019 14:31:11
== END 2019-12-06 05:30 | disposition home or self-care (01) ==
LOC: ER 01:24
DX: M43.6 Torticollis (principal); M47.812 Spondylosis without myelopathy or radiculopathy, cervical region; M54.2 Cervicalgia; R51 Headache; I95.9 Hypotension, unspecified; F17.210 Nicotine dependence, cigarettes, uncomplicated; Z88.0 Allergy status to penicillin
CPT/HCPCS: 93005; 99285; 81001; 80307; 70450; 72125; 93010; J1885; J1100

== ENCOUNTER 2020-01-04 00:56 | Emergency (ER) | payer SELFPAY ==
--- NOTE | 2020-01-04 02:19 | ER Document Report ---
ED General - General Chief Complaint: Nausea/Vomiting/Diarrhea Stated Complaint: NAUSEA/INSECT BITE Time Seen by Provider: 01/04/20 02:06 Primary Care Provider: AYDEE LASSITER PA-C [Primary Care Provider] - 01/06/20 Notes: Patient is a 59-year-old female that comes emergency department with 2 complaints. First complaint is a tender, red, spreading area in her left axilla next to the left breast. She states that the area was itchy and irritated at first but now it became red and warm over the past day or so. She denies any drainage from the area, she denies any bite or wound to the area. She states her tetanus is up-to-date within 5 years. Second complaint is tonight she woke up and she randomly vomited 5 times. Patient states she has felt weak and she has had some loose stools but she denies any other complaints including chest pain, abdominal pain, fever. Past medical history of heavy alcohol use, s moking, "thyroid cancer" and status post radiation years ago but no surgery or current treatments for this, GERD, anxiety, tubal ligation. TRAVEL OUTSIDE OF THE [place] IN LAST 30 DAYS: No - Related Data Allergies/Adverse Reactions: Penicillins Allergy (Unknown, Verified 01/04/20 01:04) Past Medical History - General Information source: Patient - Social History Smoking Status: Current Every Day Smoker Frequency of alcohol use: Heavy Drug Abuse: Marijuana Family History: Reviewed & Not Pertinent, CAD, DM, Hyperlipidemia, Hypertension Patient has homicidal ideation: No Renal/ Medical History: Denies: Hx Peritoneal Dialysis Psychiatric Medical History: Reports: Hx Anxiety, Hx Depression Past Surgical History: Reports: Hx Tubal Ligation - Immunizations Immunizations up to date: Yes Hx Diphtheria, Pertussis, Tetanus Vaccination: Yes - 08/13/2017 Review of Systems - Review of Systems Constitutional: See HPI EENT: No symptoms reported Cardiovascular: No symptoms reported Respiratory: No symptoms reported Gastrointestinal: See HPI Genitourinary: No symptoms reported Female Genitourinary: No symptoms reported Musculoskeletal: No symptoms reported Skin: See HPI Hematologic/Lymphatic: No symptoms reported Neurological/Psychological: No symptoms reported Physical Exam - Vital signs Vitals: Temp Pulse Resp BP Pulse Ox 99.2 F 95 16 95/58 L 97 01/04/20 01:02 01/04/20 01:02 01/04/20 01:02 01/04/20 01:02 01/04/20 01:02 - Notes Notes: GENERAL: Alert, interacts well. No acute distress. Patient is very thin and appears older than her stated age HEAD: Normocephalic, atraumatic. EYES: Pupils equal, round, and reactive to light. Extraocular movements intact. ENT: Oral mucosa moist, tongue midline. Oropharynx unremarkable. Airway patent. NECK: Full range of motion. Supple. Trachea midline. No lymphadenopathy. LUNGS: Decreased breath sounds bilaterally but lungs are still clear, no wheezes, rales, or rhonchi. No respiratory distress. Speaks in full sentences. HEART: Regular rate and rhythm. No murmur ABDOMEN: Nontender abdomen, no distention or rigidity, bowel sounds present throughout EXTREMITIES: Moves all 4 extremities spontaneously. No edema, normal radial and dorsalis pedis pulses bilaterally. No cyanosis. BACK: no cervical, thoracic, lumbar midline tenderness. No saddle anesthesia, normal distal neurovascular exam. Moves all extremities in full range of motion. NEUROLOGICAL: Alert and oriented x3. Normal speech. Cranial nerves II through XII grossly intact. Strength 5/5 in all extremities. PSYCH: Normal affect, normal mood. SKIN: There is a scabbed over area which is small in the left axillary area melanie ng the left lateral chest wall near the breast. There is surrounding erythema consistent with cellulitis with mild tenderness and warmth. There is no induration or fluctuance, there is no streaking away from the area, there is no nearby adenopathy. Course - Re-evaluation Re-evalutation: Patient's exam indicates an isolated cellulitis where she appears to have scratched herself. There is no evidence of abscess. No fever, no leukocytosis. Patient will be treated with antibiotics orally for this. CBC unremarkable otherwise, chemistry unremarkable except for elevated LFTs, patient admits to alcohol abuse. Patient has a soft nontender abdomen, after nausea medication and some IV fluids patient tolerated p.o. without any difficulty. Lipase unremarkable, EKG nonspecific, troponin is not elevated, I strongly suspect this is from alcoholic gastritis. Chest x-ray reviewed and unremarkable. I discussed with patient details and suspicions. Discussed alcohol detox follow-up which patient will consider, discussed treatment of possible UTI based on her urine and the cellulitis. Discussed treatment of gastritis and pr ecautions. Discussed return instructions. Patient states understanding and agreement. Stable, asymptomatic, well-appearing at time of discharge. - Vital Signs Vital signs: Temp Pulse Resp BP Pulse Ox 98.2 F 68 16 131/68 H 98 01/04/20 05:38 01/04/20 05:38 01/04/20 05:38 01/04/20 05:38 01/04/20 05:38 - Laboratory Result Diagrams: 01/04/20 03:10 01/04/20 03:10 Laboratory results interpreted by me: 01/04/20 01/04/20 01/04/20 01:58 03:10 03:10 WBC 3.0 L MCV 102 H MCH 34.5 H RDW 15.2 H Absolute Neuts (auto) 1.3 L Chloride 108 H AST 197 H ALT 169 H Total Protein 6.2 L Urine Protein 30 H Urine Blood SMALL H Urine Urobilinogen 4.0 H Ur Leukocyte Esterase TRACE H - EKG Interpretation by Me Additional EKG results interpreted by me: EKG shows sinus rhythm at a rate of 67, QTc of 478, normal axis, no T wave inversions or ST segment changes in consecutive leads, machine reads as normal Discharge - Discharge Clinical Impression: Cellulitis Qualifiers: Site of cellulitis: unspecified site Qualified Code(s): L03.90 - Cellulitis, unspecified Vomiting Qualifiers: Vomiting type: unspecified Vomiting Intractability: non-intractable Nausea presence: with nausea Qualified Code(s): R11.2 - Nausea with vomiting, unspecified Alcohol dependence Qualifiers: Substance use status: unspecified alcohol-induced disorder Qualified Code(s): F10.29 - Alcohol dependence with unspecified alcohol-induced disorder Condition: Stable Disposition: HOME, SELF-CARE Additional Instructions: Your evaluation shows cellulitis, and skin infection. There is also possibly developing urinary tract infection. Take the antibiotic as prescribed for both to completion. Your vomiting is most likely from inflammation of the upper gastrointestinal tract from drinking frequent alcohol. Reduce/stop alcohol, consider detox follow-up listed below. Take the Zofran if needed for nausea, take famotidine as prescribed, start with bland food. Follow-up in 2 days with primary care for recheck. Return if you worsen including spiking fever, spreading redness, or any other concerning or worsening symptoms. [facility] [address] [place] [address], [place] [address] Hours: Open 24 hours Prescriptions: Cephalexin Monohydrate [Keflex 500 mg Capsule] 500 mg PO QID #28 capsule Famotidine [Pepcid 20 mg Tablet] 20 mg PO BID #12 tablet Ondansetron [Zofran Odt 4 mg Tablet] 1 - 2 tab PO Q4H PRN #15 tab.rapdis PRN Reason: For Nausea/Vomiting Referrals: AYDEE LASSITER PA-C [Primary Care Provider] - 01/06/20
[2020-01-04] MEDS ORDERED: ONDANSETRON HCL INJ/PF 4 MG/2 ML SDV IV ONE (02:30)
[2020-01-04] MEDS ORDERED: NORMAL SALINE 500 ML IV ONE (02:30)
--- NOTE | 2020-01-04 03:44 | RADIOLOGY REPORT (SQ) ---
CLINICAL INDICATION: weakness, vomiting. TECHNIQUE: A single portable AP view was obtained of the chest at 0326 hours. COMPARISON: February 07, 2012. FINDINGS: The cardiomediastinal silhouette is normal. The lungs are grossly clear. No evidence of effusion or pneumothorax. The visualized bones are unremarkable. Mild chronic change IMPRESSION: No evidence of active intrathoracic disease.
[2020-01-04 03:46] LABS: ABSOLUTE EOSINOPHILS # (AUTO) 0.1 10^3/uL (0.0-0.6); ABSOLUTE LYMPHOCYTES (AUTO) 1.2 10^3/uL (0.5-4.7); ABSOLUTE MONOCYTES (AUTO) 0.4 10^3/uL (0.1-1.4); ABSOLUTE NEUT (AUTO) 1.3 10^3/uL (1.7-8.2); BASOPHILS % (AUTO) 1.2 % (0-2); EOSINOPHILS % (AUTO) 4.9 % (0-6); HEMATOCRIT 44.4 % (36.0-47.0); HEMOGLOBIN 15.1 g/dL (12.0-15.5); LYMPHOCYTES % (AUTO) 38.6 % (13-45); MEAN CORPUSCULAR HEMOGLOBIN 34.5 pg (27.0-33.4); MEAN CORPUSCULAR VOLUME 102 fl (80-97); MONOCYTES % (AUTO) 12.9 % (3-13); PLATELET COUNT 154 10^3/uL (150-450); RED BLOOD COUNT 4.38 10^6/uL (3.72-5.28); RED CELL DISTRIBUTION WIDTH 15.2 % (11.5-14.0); SEGMENTED NEUTROPHILS % (AUTO) 42.4 % (42-78); TOTAL CELLS COUNTED % (AUTO) 100 %
[2020-01-04 03:59] LABS: ALBUMIN 3.7 g/dL (3.5-5.0); ALKALINE PHOSPHATASE 89 U/L (38-126); ANION GAP 5 (5-19); ASPARTATE AMINO TRANSFERASE 197 U/L (14-36); BILIRUBIN,TOTAL 0.2 mg/dL (0.2-1.3); BLOOD UREA NITROGEN 9 mg/dL (7-20); CALCIUM 9.1 mg/dL (8.4-10.2); CARBON DIOXIDE 30 mmol/L (22-30); CHLORIDE 108 mmol/L (98-107); GLUCOSE 86 mg/dL (75-110); POTASSIUM 3.9 mmol/L (3.6-5.0); TOTAL PROTEIN 6.2 g/dL (6.3-8.2)
[2020-01-04 05:03] LABS: APPEARANCE,URINE CLOUDY; BILIRUBIN,URINE NEGATIVE (NEGATIVE); COLOR,URINE AMBER; GLUCOSE, URINE NEGATIVE (NEGATIVE); KETONES,URINE NEGATIVE (NEGATIVE); LEUKOCYTE ESTERASE,URINE TRACE (NEGATIVE); NITRITE,URINE NEGATIVE (NEGATIVE); PROTEIN,URINE 30 mg/dL (NEGATIVE); URINE SPECIFIC GRAVITY 1.017
[2020-01-04] MEDS ORDERED: CEPHALEXIN 500 MG CAPSULE PO ONE (05:16)
[2020-01-04] MEDS ORDERED: FAMOTIDINE 20 MG TABLET PO ONE (05:16)
[2020-01-04] MEDS ORDERED: ONDANSETRON ODT 4 MG TAB (6 TAB/ER DISP) PO PRN (05:17)
[2020-01-04 05:40] VITALS: BP 131/68
--- NOTE | 2020-01-04 15:02 | EKG REPORT ---
SEVERITY:- NORMAL ECG - SINUS RHYTHM : Confirmed by: Salvatore Mo MD 04-Jan-2020 15:01:48
== END 2020-01-04 05:38 | disposition home or self-care (01) ==
LOC: ER 00:56
DX: L03.90 Cellulitis, unspecified (principal); R11.2 Nausea with vomiting, unspecified; F10.29 Alcohol dependence with unspecified alcohol-induced disorder; R23.4 Changes in skin texture; R53.1 Weakness; R19.7 Diarrhea, unspecified; F17.200 Nicotine dependence, unspecified, uncomplicated; F12.10 Cannabis abuse, uncomplicated; Z85.850 Personal history of malignant neoplasm of thyroid; Z92.3 Personal history of irradiation; Z88.0 Allergy status to penicillin
CPT/HCPCS: 93005; 99285; 90471; 36415; 83690; 85025; 80053; 81001; 84484; 71045; 93010; J2405; J7040

== ENCOUNTER 2020-01-24 21:57 | Emergency (ER) | payer SELFPAY ==
[2020-01-24 22:51] LABS: APPEARANCE,URINE CLEAR; BILIRUBIN,URINE NEGATIVE (NEGATIVE); COLOR,URINE STRAW; GLUCOSE, URINE NEGATIVE (NEGATIVE); KETONES,URINE NEGATIVE (NEGATIVE); LEUKOCYTE ESTERASE,URINE NEGATIVE (NEGATIVE); NITRITE,URINE NEGATIVE (NEGATIVE); PROTEIN,URINE NEGATIVE (NEGATIVE); URINE SPECIFIC GRAVITY 1.004; UROBILINOGEN,URINE NEGATIVE mg/dL (<2.0)
[2020-01-24 22:56] LABS: ABSOLUTE BASOPHILS # (AUTO) 0.1 10^3/uL (0.0-0.2); ABSOLUTE EOSINOPHILS # (AUTO) 0.3 10^3/uL (0.0-0.6); ABSOLUTE LYMPHOCYTES (AUTO) 2.1 10^3/uL (0.5-4.7); ABSOLUTE MONOCYTES (AUTO) 0.4 10^3/uL (0.1-1.4); ABSOLUTE NEUT (AUTO) 1.9 10^3/uL (1.7-8.2); BASOPHILS % (AUTO) 1.3 % (0-2); EOSINOPHILS % (AUTO) 6.4 % (0-6); HEMATOCRIT 49.9 % (36.0-47.0); HEMOGLOBIN 17.1 g/dL (12.0-15.5); LYMPHOCYTES % (AUTO) 43.8 % (13-45); MEAN CORPUSCULAR HEMOGLOBIN 35.3 pg (27.0-33.4); MEAN CORPUSCULAR HGB CONC 34.4 g/dL (32.0-36.0); MEAN CORPUSCULAR VOLUME 103 fl (80-97); MONOCYTES % (AUTO) 8.4 % (3-13); PLATELET COUNT 182 10^3/uL (150-450); RED BLOOD COUNT 4.85 10^6/uL (3.72-5.28); RED CELL DISTRIBUTION WIDTH 14.8 % (11.5-14.0); SEGMENTED NEUTROPHILS % (AUTO) 40.1 % (42-78); TOTAL CELLS COUNTED % (AUTO) 100 %; WHITE BLOOD COUNT 4.8 10^3/uL (4.0-10.5)
[2020-01-24 23:01] LABS: ALBUMIN 4.4 g/dL (3.5-5.0); ALCOHOL 292 mg/dL (NONE DETECTED); ALKALINE PHOSPHATASE 125 U/L (38-126); ANION GAP 12 (5-19); ASPARTATE AMINO TRANSFERASE 247 U/L (14-36); BILIRUBIN,DIRECT 0.3 mg/dL (0.0-0.4); BILIRUBIN,TOTAL 0.4 mg/dL (0.2-1.3); BLOOD UREA NITROGEN 8 mg/dL (7-20); CALCIUM 9.3 mg/dL (8.4-10.2); CARBON DIOXIDE 22 mmol/L (22-30); CHLORIDE 113 mmol/L (98-107); GLUCOSE 89 mg/dL (75-110); POTASSIUM 4.5 mmol/L (3.6-5.0); TOTAL PROTEIN 7.4 g/dL (6.3-8.2)
[2020-01-24 23:02] LABS: URINE AMPHETAMINES SCREEN NEGATIVE; URINE BARBITURATES SCREEN NEGATIVE; URINE BENZODIAZEPINES SCREEN NEGATIVE; URINE COCAINE SCREEN NEGATIVE; URINE MARIJUANA (THC) SCREEN NEGATIVE; URINE METHADONE SCREEN NEGATIVE; URINE PHENCYCLIDINE SCREEN NEGATIVE
[2020-01-24 23:02] LABS: ACETAMINOPHEN < 10 ug/mL (10-30); SALICYLATE < 1.0 mg/dL (2.0-20.0)
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
[2020-01-25] MEDS ORDERED: NORMAL SALINE 1000 ML 1,000 ML IV ONE (02:11)
[2020-01-25] MEDS ORDERED: ACETAMINOPHEN 325 MG TABLET PO ONE (02:47)
--- NOTE | 2020-01-25 12:46 | PSYCHOLOGICAL NOTE ---
Psych Note - Psych Note Date seen by psych provider: 01/25/20 Time seen by psych provider: 11:28 - Evaluation from [id number]. Psych Note: Patient is a 59 year old female who presented to the Emergency Department last evening via EMS due to alcohol intoxication (Serum Alcohol Level was 292 upon arrival to the Emergency Department) and suicidal ideation (per EMS held a knife to her throat threatening to kill herself). While in the Emergency Department she was tearful/crying and cursing. She at first said F this and that, I'm going to kill myself, Take me to Retirement, and was belligerent to patient radiation safety officer about watching her. Then she was talking with herself and repeatedly asking for something to sleep. Patient was subsequently put on a 24 Hour Petition for Evaluation. Patient reported "I'm alright, I had a little too much to drink, it's that liquor." She identified she was drinking [facility]. She identified "I left my last year, I tend to come back around when he is drinking liquor, he always brings up the past, I'm tired of hearing about it" when asked why she held a knife to her throat. She denied taking action and showed neck which had no lima. She stated it was a paring knife. She denied follow up with [facility] and again declined linkage to [facility] for voluntary alcohol detoxification and mental health treatment (both of these have been recommended from previous Emergency Department visit, she has yet to follow up with [facility], and always declines linkage to [facility]). She stated "I need to, I haven't, I want to go home and make an appointment, I would have to take the Medicaid bus and you have to call a week ahead, they charge $[address] which isn't that bad." She was informed she could walk over to [facility] upon discharge from the Emergency Department. She stated her could call a cab for her around 1400. Patient denied current suicidal and homicidal ideation. Patient was alert and oriented to self, person, place, time and situation. Mood was euthymic with congruent affect. She denied current suicidal and homicidal ideation. Patient did not appear to be responding to internal stimuli as evidenced by fair eye contact and answering questions appropriately when addressed. Thought processes were linear and organized. Conversational speech was within normal limits for rate, tone and prosody. Intellectual abilities are estimated to be average. Insight, judgment and impulse control were fair as evidenced by having sobered up from alcohol intoxication and being able to discuss her trigger (being around when he is drinking liquor, she drinks also, brings up the past and she's tired of hearing about it). Chart review revealed patient was in the Emergency Department for similar etiology 7 times in 2019 (from 08/13/18 through 04/09/19). Her most recent visit where [facility] was involved was on 09/30/2019 for similar etiology. She declined linkage to [facility] and was encouraged to at the very least follow up with [facility] for outpatient treatment. She has been offered these linkages and resources each time and declines linkage to [facility], as well as thus far not following up with [facility]. Patient's , Kaitlyn ([phone]) called in at 1329 and then again at 1435. He was made aware of plan of care and recommendations. At the 1435 call he stated he would provide transportation for patient and would be to the hospital in a half an hour. He was made aware at the very least patient needs to do a walk in to [facility]. He said he would take her there. Clinical Presentation: Alcohol Intoxication with Use Disorder, Severe Suicidal Ideation Marital Discord Impression/Plan: Patient is cleared from acute psychiatric services. Recommendation to rescind 24 Hour Petition for Evaluation. Patient had time to sober up from alcohol intoxication, denied current suicidal and homicidal ideation, and no observed psychosis. Recommended linkage to [facility] for voluntary detoxification and mental health treatment. Patient declined and they had no bed availability. Recommended follow up with [facility] and doing a walk in directly from Emergency Department discharge. Provided patient with the mental health and substance abuse resource sheets (which she has received from previous visits). Highlighted [facility] and [facility]. Informed patient the recommendation is for voluntary alcohol detoxification which [facility] can assist with. Informed her at the very least she needs to follow up with [facility] for outpatient treatment. aware of plan of care and to provide transportation from Emergency Department to [facility]. Consulted with Dr. Hernandez regarding the management and care of patient. ED Physician in agreement with recommendations.
[2020-01-25 14:54] VITALS: BP 141/70
--- NOTE | 2020-01-25 15:20 | EKG REPORT ---
SEVERITY:- BORDERLINE ECG - SINUS TACHYCARDIA BORDERLINE RIGHT AXIS DEVIATION BORDERLINE PROLONGED QT INTERVAL : Confirmed by: Ritchie Stuart MD 25-Jan-2020 15:20:11
== END 2020-01-25 15:06 | disposition home or self-care (01) ==
LOC: ER 21:57
DX: R74.8 Abnormal levels of other serum enzymes (principal); F68.8 Other specified disorders of adult personality and behavior; F10.920 Alcohol use, unspecified with intoxication, uncomplicated; R45.851 Suicidal ideations; F17.200 Nicotine dependence, unspecified, uncomplicated; Z88.0 Allergy status to penicillin; Z98.51 Tubal ligation status
CPT/HCPCS: 93005; 99285; 96360; 96361; 36415; 80307 ×4; 85025; 80053; 81001; 93010; J7030

== ENCOUNTER 2020-05-28 23:21 | Emergency (ER) | payer SELFPAY ==
--- NOTE | 2020-05-29 00:10 | ER Document Report ---
ED Medical Screen (RME) - General Stated Complaint: COUGHING BLOOD Time Seen by Provider: 05/29/20 00:02 Primary Care Provider: AYDEE LASSITER PA-C [Primary Care Provider] - Follow up as needed Mode of Arrival: Ambulatory Information source: Patient TRAVEL OUTSIDE OF THE [place] IN LAST 30 DAYS: No - HPI Patient complains to provider of: Hemoptysis Notes: 05/29/20 00:10 Patient here with complaints of coughing up blood for the last few days. She states she is has a history of having this in the past. She does report a history of DVTs in the past. She is not currently on blood clots. She states she is also "had a spot on her lungs ". She is a smoker. She did complain of some mild shortness of breath. She denies any chest pain. Exam: No distress, nontoxic appearing. Lungs clear and equal throughout. Heart sounds normal. An initial examination was made on the patient as part of the triage process, and it was determined a more comprehensive evaluation was necessary. Initial labs were ordered and patient was transferred to another provider in the ED who assumed care and finished evaluation and plan. - Related Data Allergies/Adverse Reactions: Penicillins Allergy (Unknown, Verified 01/24/20 22:20) Past Medical History Renal/ Medical History: Denies: Hx Peritoneal Dialysis GI Medical History: Reports: Hx Gastroesophageal Reflux Disease Psychiatric Medical History: Reports: Hx Anxiety, Hx Depression Past Surgical History: Reports: Hx Tubal Ligation - Immunizations Immunizations up to date: Yes Hx Diphtheria, Pertussis, Tetanus Vaccination: Yes - 08/13/2017 Physical Exam - Vital signs Vitals: Temp Pulse BP Pulse Ox 97.5 F 94 105/67 99 05/28/20 23:31 05/28/20 23:31 05/28/20 23:31 05/28/20 23:31 Course - Vital Signs Vital signs: Temp Pulse Resp BP Pulse Ox 97.5 F 94 105/67 99 05/28/20 23:31 05/28/20 23:31 05/28/20 23:31 05/28/20 23:31 Doctor's Discharge - Discharge Referrals: AYDEE LASSITER PA-C [Primary Care Provider] - Follow up as needed
[2020-05-29 00:40] LABS: ABSOLUTE EOSINOPHILS # (AUTO) 0.1 10^3/uL (0.0-0.6); ABSOLUTE LYMPHOCYTES (AUTO) 1.5 10^3/uL (0.5-4.7); ABSOLUTE MONOCYTES (AUTO) 0.4 10^3/uL (0.1-1.4); ABSOLUTE NEUT (AUTO) 2.3 10^3/uL (1.7-8.2); BASOPHILS % (AUTO) 1.1 % (0-2); HEMATOCRIT 42.1 % (36.0-47.0); HEMOGLOBIN 14.7 g/dL (12.0-15.5); LYMPHOCYTES % (AUTO) 34.8 % (13-45); MEAN CORPUSCULAR HEMOGLOBIN 35.1 pg (27.0-33.4); MEAN CORPUSCULAR HGB CONC 34.9 g/dL (32.0-36.0); MEAN CORPUSCULAR VOLUME 101 fl (80-97); PLATELET COUNT 173 10^3/uL (150-450); RED BLOOD COUNT 4.19 10^6/uL (3.72-5.28); SEGMENTED NEUTROPHILS % (AUTO) 53.1 % (42-78); TOTAL CELLS COUNTED % (AUTO) 100 %; WHITE BLOOD COUNT 4.3 10^3/uL (4.0-10.5)
[2020-05-29 00:41] LABS: INTERNATIONAL RATION (INR) 0.92; PROTHROMBIN TIME 12.6 SEC (11.4-15.4)
[2020-05-29 00:50] LABS: ALBUMIN 4.4 g/dL (3.5-5.0); ALKALINE PHOSPHATASE 98 U/L (38-126); ANION GAP 7 (5-19); ASPARTATE AMINO TRANSFERASE 199 U/L (14-36); BILIRUBIN,DIRECT 0.2 mg/dL (0.0-0.4); BILIRUBIN,TOTAL 0.5 mg/dL (0.2-1.3); BLOOD UREA NITROGEN 11 mg/dL (7-20); CALCIUM 9.9 mg/dL (8.4-10.2); CARBON DIOXIDE 28 mmol/L (22-30); CHLORIDE 106 mmol/L (98-107); GLUCOSE 87 mg/dL (75-110); POTASSIUM 4.4 mmol/L (3.6-5.0); TOTAL PROTEIN 7.5 g/dL (6.3-8.2)
--- NOTE | 2020-05-29 01:59 | RADIOLOGY REPORT (SQ) ---
EXAM DESCRIPTION: CTA CHEST CLINICAL HISTORY: 59 years Female; Hemoptysis, prior history of DVT. CREAT 0.85 TECHNIQUE: CT angiogram of the chest using intravenous contrast.. MIP reconstructions were performed. All CT scans at this facility use dose modulation, iterative reconstruction, and/or weight based dosing when appropriate to reduce radiation dose to as low as reasonably achievable. COMPARISON: None. FINDINGS: Chest: Vascular: Exam is of diagnostic quality. There is no evidence of pulmonary artery embolization bilaterally. Thoracic aorta is of normal caliber. No aneurysm or dissection. Lungs: Lungs are hyperinflated. There is scattered calcified granulomas present throughout the lungs bilaterally. No pulmonary nodules or masses. There appears to be pleural parenchymal scarring with a cystic area noted in the right upper lobe. The cystic area measures 1.8 cm. There is mild thickening along the lateral aspect of the cyst. This may just represent a scar. However, cystic neoplasm cannot be excluded. No pleural effusion. No pneumothorax. Mediastinum: Heart size is small. No pericardial abnormality. Small calcified right hilar lymph nodes are present. The airway is patent. Bones and soft tissues: T9 compression fracture is identified which appears old. No destructive bone lesions. Soft tissues of the chest wall are unremarkable. Upper Abdomen: Severe fatty infiltration of the liver is present. IMPRESSION: 1. No pulmonary artery embolization. 2. Cystic nodule in the right upper lobe. This may just represent an area of pleural parenchymal scar however low-grade neoplasm cannot be excluded. Either PET/CT or CT follow-up in three months is recommended for further evaluation. 3. Fatty infiltration of the liver. 4. Previous granulomatous infection.
[2020-05-29 04:09] VITALS: BP 123/81
--- NOTE | 2020-05-29 10:32 | EKG REPORT ---
SEVERITY:- NORMAL ECG - SINUS RHYTHM : Confirmed by: Tammy Garcia 29-May-2020 10:32:07
== END 2020-05-29 04:19 | disposition left against medical advice (07) ==
LOC: ER 23:21
DX: R04.2 Hemoptysis (principal); F17.200 Nicotine dependence, unspecified, uncomplicated; K76.0 Fatty (change of) liver, not elsewhere classified; R91.1 Solitary pulmonary nodule; Z86.718 Personal history of other venous thrombosis and embolism; Z88.0 Allergy status to penicillin; Z53.20 Procedure and treatment not carried out because of patient's decision for unspecified reasons
CPT/HCPCS: 36415; 71275; 80053; 84484; 85025; 85610; 85730; 93005; 93010; 99281